=== PATIENT | female | born 1995 | race Caucasian/White ===

== ENCOUNTER → 2022-03-01 | Outpatient (CLI) | payer OTHER, SELFPAY ==
[2022-03-01 17:39] LABS: Absolute Lymphocyte Count 1.77 X10^3/uL (0.83-4.51); Absolute Neutrophil Count 2.3 X10^3/uL (2.0-7.7); Basophil# 0.04 X10^3/uL; Basophil% 0.8 % (0-1); Eosinophil# 0.08 X10^3/uL; Eosinophils% 1.6 % (0-5); Hematocrit 41.5 % (37-47); Hemoglobin 14.2 g/dL (12.0-15.0); Lymphocyte # 1.77 X10^3/ul (0.83-4.51); Lymphocyte % 34.6 % (19-41); Mean Corp Hgb Conc 34.2 g/dL (32-36); Mean Corpuscular Hgb 29.6 pg (27.0-32.0); Mean Corpuscular Volume 86.6 fL (81-99); Mean Platelet Vol. 9.5 fl (6.2-12.0); Monocyte# 0.92 X10^3/uL; NRBC Flagged by Analyzer 0 % (0-5); Neutrophil # 2.29 X10^3/uL (2.7-7.7); Neutrophil % 44.6 % (47-70); Platelet Count 344 K/mm3 (150-450); RBC Distribution Width CV 13.2 % (11.6-14.6); RBC Distribution Width SD 41.4 fl (35.1-43.9); Red Blood Count 4.79 M/mm3 (4.2-5.4); White Blood Count 5.1 K/mm3 (4.4-11.0)
[2022-03-01 18:25] LABS: ALB/GLOB Ratio 0.9 RATIO (0.9-2.4); AST(SGOT) 14 U/L (15-37); Alanine Aminotransfer ALT/SGPT 27 U/L (13-56); Albumin, Serum 3.8 g/dL (3.2-5.0); Alkaline Phosphatase 58 U/L (45-117); Anion Gap 10 (5-15); BUN 12 mg/dL (7-18); BUN/Creat Ratio 13.7 RATIO (10-20); Calcium,Total 8.9 mg/dL (8.5-10.1); Chloride 108 mmol/L (98-107); Creatinine, Serum 0.88 mg/dL (0.55-1.02); EST Glomerular Filtration Rate 84 mL/min (>60); Est Glom Filt Rate - Afr Amer 102 mL/min (>60); Globulin 4.2 g/dL (2.2-4.2); Glucose 87 mg/dL (74-106); Potassium 3.4 mmol/L (3.5-5.1); Sodium Level 139 mmol/L (136-145); T4 Free Direct 1.27 ng/dL (0.76-1.46); Thyroid Stim Hormone (TSH) 1.24 uIU/mL (0.358-3.74)
[2022-03-04 11:23] LABS: Anti-Thyroglobulin AB < 1.0 IU/mL (0.0-0.9); Thyroglobulin, Serum Qt. 22.8 ng/mL (1.5-38.5); Thyroid Peroxidase AB 14 IU/mL (0-34)
== END | disposition home or self-care (01) ==
LOC: MTLAB 16:44
PROVIDERS: PCP Family Medicine; Referring Provider Family Medicine; Visit Provider Family Medicine
DX: E04.1 Nontoxic single thyroid nodule (principal)
CPT/HCPCS: 36415; 80053; 84432; 84439; 84443; 85025; 86376; 86800

== ENCOUNTER → 2022-03-05 | Outpatient (CLI) | payer OTHER, SELFPAY ==
--- NOTE | 2022-03-05 11:31 | US_ITS ---
STUDY: THYROID ULTRASOUND REASON FOR EXAM: Female, 26 years old. Nodule noted on previous CT TECHNIQUE: Ultrasound evaluation of the thyroid was performed with real-time and static mendez-scale imaging. COMPARISON: None. FINDINGS: RIGHT LOBE: The right lobe of the thyroid gland measures 5.1 x 2.4 x 1.3 cm. There is a homogeneous echotexture. There is a hypoechoic 0.8 x 0.7 x 0.6 cm nodule in the lower pole. LEFT LOBE: The left lobe of the thyroid gland measures 5.2 x 1.6 x 1.0 cm. There is a homogeneous echotexture. There are no demonstrated solid, cystic or complex lesions. ISTHMUS: The isthmus measures 2.3 mm. The regional lymph nodes are normal. All measure less than 1 cm in short axis dimension. US/Thyroid IMPRESSION: Homogeneous thyroid gland with solid 0.8 cm lower pole nodule in the right lobe. This nodule is solid or almost completely solid, hypoechoic, [id number], smoothly marginated and contains no echogenic foci. This nodule is moderately suspicious but no FNA or follow-up is necessary given the small size of this nodule. Electronically Signed: Victorino Mackay MD at 14:40 EST ,
== END | disposition home or self-care (01) ==
PROVIDERS: PCP Family Medicine; Referring Provider Family Medicine; Visit Provider Family Medicine
DX: E04.1 Nontoxic single thyroid nodule (principal)
CPT/HCPCS: 76536

== ENCOUNTER → 2022-12-13 | Outpatient (CLI) | payer OTHER, SELFPAY ==
[2022-12-13 17:30] LABS: Absolute Lymphocyte Count 2.72 X10^3/uL (0.83-4.51); Absolute Neutrophil Count 5.7 X10^3/uL (2.0-7.7); Basophil# 0.06 X10^3/uL; Basophil% 0.6 % (0-1); Eosinophil# 0.16 X10^3/uL; Eosinophils% 1.7 % (0-5); Hematocrit 41.5 % (37-47); Hemoglobin 13.7 g/dL (12.0-15.0); Lymphocyte # 2.72 X10^3/ul (0.83-4.51); Mean Corpuscular Hgb 29.4 pg (27.0-32.0); Mean Corpuscular Volume 89.1 fL (81-99); Mean Platelet Vol. 9.2 fl (6.2-12.0); Monocyte% 7.5 % (0-10); NRBC Flagged by Analyzer 0 % (0-5); Neutrophil # 5.68 X10^3/uL (2.7-7.7); Neutrophil % 60.7 % (47-70); Platelet Count 408 K/mm3 (150-450); RBC Distribution Width CV 12.8 % (11.6-14.6); RBC Distribution Width SD 41.5 fl (35.1-43.9); Red Blood Count 4.66 M/mm3 (4.2-5.4); White Blood Count 9.4 K/mm3 (4.4-11.0)
[2022-12-13 18:05] LABS: Vitamin B12 458 pg/mL (211-911); Vitamin D,25 Hydroxy 20.6 ng/mL
[2022-12-13 18:09] LABS: AST(SGOT) 13 U/L (15-37); Alanine Aminotransfer ALT/SGPT 26 U/L (13-56); Alkaline Phosphatase 56 U/L (45-117); Anion Gap 6 (5-15); BUN 14 mg/dL (7-18); BUN/Creat Ratio 14.6 RATIO (10-20); Calcium,Total 9.2 mg/dL (8.5-10.1); Chloride 107 mmol/L (98-107); Creatinine, Serum 0.96 mg/dL (0.55-1.02); EST Glomerular Filtration Rate 75 mL/min (>60); Est Glom Filt Rate - Afr Amer 91 mL/min (>60); Globulin 4.2 g/dL (2.2-4.2); Glucose 87 mg/dL (74-106); Potassium 4.3 mmol/L (3.5-5.1); Protein, Total 8.2 g/dL (6.4-8.2); Sodium Level 138 mmol/L (136-145); T4 Free Direct 1.14 ng/dL (0.76-1.46); Thyroid Stim Hormone (TSH) 0.84 uIU/mL (0.358-3.74)
== END | disposition home or self-care (01) ==
LOC: MFPLAB 16:53
PROVIDERS: PCP Family Medicine; Visit Provider Family Medicine
DX: R53.83 Other fatigue (principal)
CPT/HCPCS: 36415; 80053; 82306; 82607; 84439; 84443; 85025

== ENCOUNTER 2022-12-26 08:00 | Outpatient (RCR) | payer OTHER, SELFPAY ==
--- NOTE | 2022-12-26 09:05 | BH.SGPN.GN ---
Behaviors/Verbalizations/Mental Status: [] Pt alert and oriented, neatly dressed and groomed. Eye contact good. Motor activity appropriate. Speech within normal limits. Affect flat, mood anxious. Thoughts linear, logical, no signs of hallucinations or delusions. Reviewed pt?s symptom tracker, no risk for suicidal ideation, plan, or intent 12/26/22 Client Response/Progress/Benefit: []Pt responded well to session, attentive and engaged. Pt's first day of IOP tx and pt shared the biggest stressor she wants to work on is how to not feel so overwhelmed. Pt shared work is her biggest trigger for stress and pt is currently on leave. Pt shared she has not been able to function because of her anxiety, but this weekend she had a moment of normalcy as pt went to the fair with friends and had a good time. Pt receptive to encouragement from peers and therapist. Pt will continue IOP tx to prevent decompensation, improve daily functioning, and reduce isolation. Narrative Note: []
--- NOTE | 2022-12-26 09:58 | BH.COMM ---
Communication Note Communication with Client Communication Note: Met with pt to complete initial paperwork. Pt reports no changes since intake assessment. Completed the CSSR-S screening and risk assessment with pt. No history of thoughts of or suicidal ideations, ever. Discussed case with Dr. Alanis and pt will be admitted to [facility] level of care with diagnosis of MDD F32.2
--- NOTE | 2022-12-26 10:15 | BH.SGPN.GN ---
Behaviors/Verbalizations/Mental Status: []Eye contact is good. Motor activity is appropriate. Appearance is casual. Speech is Appropriate, mostly quiet as it is pt first day. Mood is anxious and depressed. Affect is congruent. Thoughts are linear and logical. No evidence of psychosis. Client Response/Progress/Benefit: []Pt was an active participant in group discussion. Attentive during psychoeducation on SMART goals. Participated in experiential activity. Engaged during interactive discussion on the benefits of setting goals which group identified as; increase self-worth, increase confidence, can motivate us, can lead to personal growth, and can give one a sense of purpose. Participated during interactive discussion on possible obstacles to obtaining goals and pt self-identified barriers as procrastinating and self-doubt. Benefited from increased understanding of benefits of goals, obstacles to obtaining goals, and methods for setting appropriate goals (SMART goals). Will continue in IOP to prevent decompensation, stabilize mood, and improve current functioning. Narrative Note: []
--- NOTE | 2022-12-26 11:15 | BH.SGPN.GN ---
Behaviors/Verbalizations/Mental Status: []Pt alert and oriented, casually dressed, appropriately groomed. Eye contact good. Motor activity appropriate. Speech within normal limits, mostly quiet. Affect congruent, mood anxious and depressed. Thoughts linear, logical, no signs of hallucinations or delusions. Client Response/Progress/Benefit: []Pt was engaged during discussion and willing to complete the worksheet challenging them to develop a personal SMART goal. Pt chose the goal of going for a 30 minute walk 2x this week. Pt stated this will benefit them by being improving their mood and positivity, as well as lead to feeling more physically healthy. Pt identified barriers which included feeling too tired or unmotivated and bad weather. Identified for feeling too tired she can use reminding herself of the benefits as well as try and go in the afternoon rather than morning. Pt receptive to identifying solutions for these barriers and willing to begin working on this goal. Benefited from this group by developing a short-term SMART goal related to mental health. Will continue IOP to improve healthy coping skills, decrease anxiety, and prevent decompensation. Narrative Note: []
--- NOTE | 2022-12-28 09:05 | BH.SGPN.GN ---
Behaviors/Verbalizations/Mental Status: []Pt alert and oriented, casually dressed and groomed. Eye contact good. Motor activity appropriate. Speech within normal limits. Affect congruent, mood dysthymic and anxious. Thoughts linear, logical, no signs of hallucinations or delusions. Reviewed pt?s symptom tracker, no suicidal ideation reported, denies plan, or active intent as of 12/28/22. Client Response/Progress/Benefit: [] Pt responded well to session, open to processing with group and engaged. Pt reports feeling anxious this morning. Shared her current stressor is contributing to increased anxiety levels as she recently realized she had forgotten to call about completing paperwork for work in order for her to take time off for tx. Described waking up in the middle of the night with anxiety as a result. Did well to identify what is in her control today and expressed plans to reach out this afternoon. Went on to identify current mental health wins which included getting some housework done the previous date, as well as getting up early this morning and starting her day off on a more positive note. Shared taking time to actually eat breakfast before group. Pt appeared to benefit from supportive feedback of the group, as well as reflecting on mental health wins. Pt will continue IOP tx to promote mood stability, improve self-care and anxiety management, as well as continue to improve functioning. Narrative Note: []
--- NOTE | 2022-12-28 11:15 | BH.SGPN.GN ---
Behaviors/Verbalizations/Mental Status: []Pt alert and oriented, casually dressed and groomed. Eye contact good. Motor activity appropriate. Speech within normal limits. Affect congruent, mood depressed and anxious. Thoughts linear, logical, no signs of hallucinations or delusions. Client Response/Progress/Benefit: [] Pt was an active participant AEB providing input and was actively taking notes. Connected with the topic of pitfalls and listened to group discussion on internal and external barriers that prevent from choosing a healthier path to mental wellness. Group worked together to identify examples of personal internal pitfalls and pt identified theirs as avoidance, isolation, and lack of self-care. Pt benefited from group as Pt learned to better identify and normalize potential barriers to improving mental health symptoms. Pt did well during the activity, reporting feeling stressed, but practiced healthy coping skills. Pt will continue IOP tx to prevent decompensation, improve daily functioning, and gain healthy coping skills. Narrative Note: []
--- NOTE | 2022-12-28 13:10 | PCM.BH.PSYEV ---
Psychiatric Evaluation Initial Evaluation Initial Evaluation: History of Present Illness: [] The patient is a 27-year-old single female with a history of depression and anxiety who was referred to the [facility] behavioral health IOP by her psychiatrist, Dr. Armas, due to worsening symptoms of anxiety and depression. She currently lives with her grandmother across the street from her parents and brother. 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 Her job is always very stressful and she has been off work for several weeks since November 17, 2022 due to mental health issues. Her stress has decreased since being off work but she is still depressed and somewhat anxious. She states she began feeling anxious and depressed around December 2021 when she changed her department at work and then there was low staff. She started a different job position doing intakes but that caused her stress to worsen and then she began having nausea every morning due to anxiety. She went back to her old job in May 2022 but the caseload had increased a lot due to staff shortages so her anxiety continued to worsen. For primary support she has lots of friends. She feels that she is unable to cope with the current level of symptoms she is having although she has always been anxious. She endorses sadness, crying episodes, anhedonia, guilt, isolation, low motivation, worthlessness, hopelessness and decreased concentration.. She is getting about 6 hours of sleep at night but wants to sleep all the time and once a week sleeps for over 12 hours. She has some initial insomnia. She denies any history of self-harm. She is having trouble doing her activities of daily living and paying her bills. She admits to drinking 4 drinks a day 1 to 2 days a week although she gave reports of higher alcohol use to a few other interviewers. She decreased her alcohol use about 1 month ago and she states that at the peak of her alcohol use she was drinking 4 drinks per night daily for about a week and this scared her so she decreased her use down to the current levels. She is drinking energy drinks and coffee and pop mostly in the morning. She admits to passive thoughts of like she would like to escape or going to a small coma. She denies suicidal ideation, plan for suicide, homicidal ideation, hallucinations or delusions or symptoms of delio ever. She is a worrier by nature and has had anxiety her whole life. She is having panic attacks about once a week. She denies OCD, eating disorder, trauma, PTSD, seizure or head trauma. Current Psychiatric Medications: [] Cymbalta 60 mg p.o. daily (x2 months, dose increased 4 to 6 weeks ago); hydroxyzine 25 mg p.o. 3 times daily but she is only taking 2 p.o. at bedtime to help with her sleep. BuSpar not sure the dose 10 mg p.o. twice daily. No psych admits. 1 counseling session in high school only no other counseling. No suicide attempts ever. First took meds at 18 for only 1 to 2 months. She did she stopped them because they made her less motivated. She thinks she may have taken Celexa and 1 other med but it also made her not motivated so she stopped it. Past Psychiatric History: [] See above Substance Use History: [] Non-smoker. No vaping. First used alcohol at age 22. In the past that her maximum level she used 4 drinks per night every day for a week but states that now she has decreased to 4 drinks a day 1 to 2 days a week. No marijuana use. No rehab ever. No other drug use. Allergies: [] No known allergies Medications: [] Low vitamin D so was told to take vitamin D 5000 IUs/day. Medications otherwise negative except psych meds as dictated above. Past Medical History: [] No illnesses or diseases. Patient has a sleep study scheduled which was ordered by her primary care doctor because he feels she may have obstructive sleep apnea as she wakes up gasping when sleeping and snores some. Tonsillectomy but no other surgeries. Regular menstrual periods. The patient is a 0 para 0 female who identifies as a lesbian. Patient also had a ultrasound of her thyroid done and had blood work done and she is not sure what it showed but they said they wanted to follow it. She has a family history of some thyroid issues. Family Psychiatric History: [] Father and brother has anxiety and mother has depression. Bipolar disorder and aunts and uncles on both sides of the family. Alcohol use in paternal grandfather, paternal uncles and maternal great uncles. Paternal uncles also have heroin drug addictions. 1 distant cousin on her mother side completed suicide. Personal/Social History: [] The patient was born and raised in [facility] and describes her childhood as isolated and surrounded by a lot of anger. Patient says she got used to being alone and isolated. Her parents were but they used to argue about her brother but they were not abusive to each other. She denies any verbal, sexual or physical abuse as a child. She did well in school and got good grades but when her anxiety worsened in high school her grades dropped. She graduated high school and played sports in high school. 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 She is not or in a relationship and identifies as a lesbian. She lives with her grandma across the street for parents and brother and her aunt and uncle live down the street. She graduated high school and graduated from [employer] with a degree in psychology. She has never had a serious girlfriend. Legal History: [] No DUIs. No long-term. Has car pick up driver's license and is able to drive. Review of Systems: [] Sweating specially when she becomes anxious and has panic attacks. Nauseated due to her anxiety. Some knee pain from old softball injuries. Review of systems otherwise negative except as noted in the present illness. Vital Signs: [] Vital signs reviewed in the medical records and in the nurses notes and updated and the patient is deemed medically able to participate in the IOP program. Mental Status Examination: [] Patient is a 27-year-old female who is overweight and otherwise appears normal for stated age and is ambulatory with a normal gait. She is casually dressed and groomed with good hygiene and has no psychomotor agitation or retardation. Mood is depressed and anxious. Affect is constricted. Eye contact is good and speech is normal rate and rhythm and fluent with no pressure. Thought process is goal-directed and organized. Thought content: There is evidence of passive thoughts of and wanting to escape into a small coma. There is no evidence of thoughts of self-harm, suicidal ideation, homicidal ideation, hallucinations or delusions. Reality testing is intact. Intelligence is average. Judgment is intact. Insight: Limited but some present. Impulsivity moderate Diagnoses: [] 1. Generalized anxiety disorder 2. Major depressive disorder, recurrent severe without psychosis 3. Work issues Plan: [] The patient will start the IOP program at [facility] in behavioral health as the structure, support, education and group therapy will hopefully prevent worsening of the patient's symptoms. She felt safe during the interview and if it anytime she does not feel safe she will let us know or go to the emergency room. The risk, options, possible complications and side effects of the medications were explained to the patient and she understands accepts these. The patient agrees to not use any alcohol and remains sober from alcohol. The patient agrees to not use any energy drinks and to decrease caffeine use. She agrees to get TS H and T4 lab work done for her history of possible thyroid or enlarged thyroid. She agrees to get her sleep study to rule out obstructive sleep apnea. She agrees to continue her current medications and in addition agrees to add Wellbutrin XL 150 mg p.o. every morning and prescription is sent in for this. She will continue to follow-up with her patient providers and I will see the patient in follow-up in 2 weeks.
--- NOTE | 2022-12-28 13:26 | BH.DR.ITP ---
Initial Treatment Plan Patient Information Visit Information: ADMISSION DATE: EXPECTED LOS: 4-6 weeks Problems/Symptoms Problem #1:: Depression Symptom:: Sadness, hopelessness, worthlessness, anhedonia, low motivation, passive thoughts of , decreased concentration, guilt Problem #2:: Anxiety Symptom:: Worry, rumination, panic attack, avoidance
--- NOTE | 2022-12-28 13:34 | BH.MDN_ITS ---
Multi-Disciplinary Note Note 30-min Individual: Time Started:: 11:25 Date: 12/28/22 Purpose of session/treatment goals addressed:: To gather information on pt's current stressors, symptoms, triggers, and tx goals. Another goal was to build rapport and provide emotional support. Eye Contact:: Good Motor Activity:: Appropriate Appearance:: Casual Speech:: Appropriate Mood:: Anxious and Depressed Affect:: Flat Thoughts:: Linear, Logical and No evidence of hallucinations/delusions noted Staff Interventions:: thought challenging, rapport building, strengths perspective, treatment planning and goal setting Client Response:: Pt responded well to session, open to meeting with therapist. Pt reports the week has done well so far and group is less anxiety- producing than expected. Pt stated her session with Dr. Alanis went well and Wellbutrin was added. Pt is currently taking time off work to be at IOP and focus on her mental health. Pt stated work is one of the biggest stressors, but pt shared she wants to get to the root of the problem while in IOP. Pt reported she wants to focus on gaining more insight to her warning signs, triggers, and negative thinking patterns. Pt shared that her symptoms have become so severe that she is avoiding everything which is not like pt. Pt stated just getting out of the house two days for IOP has already helped a little. Pt lives with her grandmother and pt shared they are close. Pt is also close with several friends, her parents, and her brother. Pt is receptive to learning healthy coping skills while in IOP and pt shared she liked the idea of creating a schedule/routine for herself. Risks/Concerns:: Pt denies any suicidal ideations. Pt admits to thoughts of such as not caring if she falls asleep and not wakes up. No suicide attempts, ever. Progress Toward Goals/Plan:: Pt's first week of IOP tx. Pt reports group has been going better than expected as pt was anxious to be around people. Pt is currently off of work to focus on her mental health and plans to be off fully until pt completes IOP. Pt currently endorses a depressed mood, lack of motivation, difficulty concentrating, lack of self-care including personal hygiene, passive thoughts of , avoidance, increased sleep, and negative thinking patterns. Pt will continue IOP tx to prevent decompensation, improve daily functioning, and increase healthy coping skills. Time Stopped:: 11:55
--- NOTE | 2022-12-28 13:35 | BH.MTP ---
[facility] Treatment Plan Patient Information Program Physician:: Dr. Alanis Primary Therapist:: Tyra WALKER Psychiatric Diagnoses Psychiatric Diagnoses:: Generalized anxiety disorder F41.1; Major depressive disorder, recurrent severe without psychosis Diagnosis Code(s):: F 41.1 Estimated LOS Estimated LOS (in weeks):: 6 Problem/Goal #1 Problem/Goal #1 Stated Goal:: Pt will increase mood stability by reducing hopelessness, worthlessness, and negative thinking patterns caused by MDD. Description of Barriers: Pt has a high-stress profession that could continue to impact pt's mental health even after IOP tx. Pt recently began drinking more frequently to cope with her mental health, but this concerned pt so she decreased use. Pt reports avoidance, negative thinking patterns, and lack of energy. Functional Impact: Pt is a 27-year-old female with a history of MDD and CHADWICK. Pt was referred to IOP tx by Dr. Armas due to worsening depression and anxiety resulting in pt taking FMLA from work. Pt reports her job is a big trigger for her worsening symptoms. Pt currently endorses a depressed mood, crying spells, hopelessness, worthlessness, feeling like a burden, insomnia, isolation, lack of energy, and lack of concentration. Pt also reports having anxiety that has been a problem forever but pt has been having weekly panic attacks. Pt also reports feelings of dread and avoidance because of anxiety. Pt's symptoms are impacting her personal hygiene, work functioning, and social functioning. Goal Relevant Strengths/Supports: Pt is motivated, connected with outpatient psychiatry, and has a lot of healthy supports. Objectives Objective #1: Stated Objective: Pt will learn and utilize 2-3 healthy coping strategies to better manage depressive symptoms and reduce suicidal ideations as shown by a decrease of DMS-5 symptoms for depression. Interventions: Through group and individual sessions, therapist will help pt identify triggers and warning signs of depression including emotional, physical, and behavioral changes. Therapist will teach pt various coping skills to manage symptoms and give pt tangible resources to use to regulate emotions. Therapist will use cognitive restructuring techniques and help pt gain awareness of negative thoughts that reinforce guilt and depression. Therapist will provide psychoeducation on maintenance cycles and help pt learn ways to break unhealthy maintenance cycles. Therapist will help pt incorporate behavioral activation and assist pt in setting SMART goals. Discharge Criteria: Pt will have met this goal when can report learning and using at least 2 coping skills to manage depressive symptoms and reduce isolation. Additionally, pt will have met this goal when pt's DSM-5 scores for depression decrease Target Date: 02/06/23 Review Date: 01/16/23 Status: open Objective #2: Stated Objective: Pt will identify at least 2-3 negative self-talk messages used to reinforce negative core beliefs, worthlessness, and isolation and replace thoughts with balanced, realistic messages. Interventions: Therapist will help pt identify distorted, negative beliefs about self and replace with more realistic, affirmative messages. Therapist will use CBT and DBT to help pt increase insight to the connection between thoughts, emotions, and behaviors. Therapist will encourage pt to practice thought challenging. Discharge Criteria: Pt will have achieved this goal when can verbalize at least 2 cognitive distortions and effectively replace those thoughts with affirmative messages. Target Date: 02/06/23 Review Date: 01/16/23 Status: open Problem/Goal #2 Problem/Goal #2 Stated Goal:: Will reduce intensity of anxiety and avoidance through increasing emotional regulation and distress tolerance skills Description of Barriers: Pt has a high-stress profession that could continue to impact pt's mental health even after IOP tx. Pt recently began drinking more frequently to cope with her mental health, but this concerned pt so she decreased use. Pt reports avoidance, negative thinking patterns, and lack of energy. Functional Impact: Pt is a 27-year-old female with a history of MDD and CHADWICK. Pt was referred to IOP tx by Dr. Armas due to worsening depression and anxiety resulting in pt taking FMLA from work. Pt reports her job is a big trigger for her worsening symptoms. Pt currently endorses a depressed mood, crying spells, hopelessness, worthlessness, feeling like a burden, insomnia, isolation, lack of energy, and lack of concentration. Pt also reports having anxiety that has been a problem forever but pt has been having weekly panic attacks. Pt also reports feelings of dread and avoidance because of anxiety. Pt's symptoms are impacting her personal hygiene, work functioning, and social functioning. Goal Relevant Strengths/Supports: Pt is motivated, connected with outpatient psychiatry, and has a lot of healthy supports. Objectives Objective #1: Stated Objective: Pt will identify 2-3 anxiety triggers and 2 coping skills to use when feeling anxious to manage anxiety as shown by reducing DSM-5 scores for anxiety Interventions: Therapist will provide education on anxiety, avoidance behaviors, and maintenance cycles. Therapist will help pt explore personal symptoms and warning signs of anxiety. Therapist will teach pt coping skills to improve emotional regulation, mindfulness, and distress tolerance to help pt cope with anxiety in the moment. Discharge Criteria: Pt will have accomplished this goal when she can identify at least 2 triggers and report using 2 coping skills to manage anxiety. Additionally, pt will have accomplished this goal AEB reduction of DSM-5 scores for anxiety. Target Date: 02/06/23 Review Date: 01/16/23 Status: open Objective #2: Stated Objective: Pt will increase ability to manage stressors and anxiety by gaining 2-3 distress tolerance skills. Interventions: Through group and individual therapy, pt will learn various coping skills to help manage stress and anxiety. Therapist will utilize DBT distress tolerance skills to increase awareness and give pt tools to more effectively manage anxiety. Therapist will provide psychoeducation on emotional regulation and help pt identify unhealthy coping skills she wants to change. Discharge Criteria: Pt will have accomplished this goal when can report improved ability to manage stressors and identify at least 2 distress tolerance skills. Target Date: 02/06/23 Review Date: 01/16/23 Status: open
--- NOTE | 2022-12-28 13:35 | BH.PSA ---
Source of Information Presenting Problems/Circumstances Problems, Referral Source, Mental Status, Client: Pt is a 27-year-old female with a history of MDD and CHADWICK. Pt was referred to [facility] tx by Dr. Armas due to worsening depression and anxiety resulting in pt taking FMLA from work. Pt reports her job is a big trigger for her worsening symptoms. Pt currently endorses a depressed mood, crying spells, hopelessness, worthlessness, feeling like a burden, insomnia, isolation, lack of energy, and lack of concentration. Pt also reports having anxiety that has been a problem forever but pt has been having weekly panic attacks. Pt also reports feelings of dread and avoidance because of anxiety. Pt's symptoms are impacting her personal hygiene, work functioning, and social functioning. Psychiatric Presentation Psych Issues & Need for Admission Psychiatric Issues:: Generalized anxiety disorder F41.1; Major depressive disorder, recurrent severe without psychosis Past Psychiatric History MH Treatment Hx Treatment History: No psych admits. Pt reports one counseling session in high school and no other counseling. No suicide attempts ever. First took meds at 18 for only 1 to 2 months. She stopped them because they made her less motivated. She thinks she may have taken Celexa and one other med but it also made her not motivated so she stopped it. First hospitalization:: n/a Most recent hospitalization:: n/a Medication Trials:: No ECT Therapy:: No Age of first mental health symptoms: around age 18, but pt reports I've probably had anxiety my entire life. Describe (age, circumstance, etc) any past hospitalizations: No hospitalizations Current providers for mental health treatment (counselor, psychiatrist, renal case manager, etc.): Pt does not have an outpatient therapist. Pt sees Dr. Armas for medication management. Development & Family of Origin Childhood Significant Childhood Events: Pt reports that she did not have abuse towards pt as a child, but pt described her childhood as isolated. Pt shared there was a lot of arguing. Family Who currently lives in your home?: Pt currently lives with her grandmother. Describe family composition:: Pt is the oldest of two children and she is close with her brother. Pt's parents are and pt has a good relationship with them for the most part. Pt and her mother have some issues that pt believes comes from childhood. Pt is close with her grandmother that she lives with. Pt is not and not currently in a serious relationship. Family History Family History Mother Arthritis Family Hx of Psychiatric or AOD Problems: Father and brother have anxiety and mother has depression. Pt reports there is history of Bipolar Disorder on both sides of the family. Alcohol use in paternal grandfather, paternal uncles, and maternal great uncles. Paternal uncles also have heroin drug addictions. Pt has one distant cousin on her mother side who by suicide. Ethnicity Culture Do you identify yourself with any particular cultural, ethnic background, or community?: No Sexuality Sexual Orientation: Homosexual Spirituality Yazidi Do you currently identify with any organized hindu?: None Mental Status Memory Recent Memory: Good Remote Memory: Good Concentration Concentration: Good Eye Contact Eye Contact: Good Speech Speech: Articulate Thought Process Thought Process: Logical Insight: Good Judgment: Good Behavior: Calm Orientation Orientation: Time, Person, Place and Situation Appearance Appearance: Appropriate Mood Mood: Anxious and Depressed Affect Affect: Constricted Suicide Assessment Suicidal Ideation Have you ever felt like hurting yourself?: No Please explain:: Pt denies suicidal ideations, but does endorse passive thoughts of . Were you using ETOH/drugs at the time?: No Physician Notification Violent Behavior/Abuse History Homicidal Ideation Do you have any homicidal thoughts? If so, explain:: No Abuse Have you ever been abused?: No Life Events Are there any other significant life events?: Hardships (Difficulty functioning at work, home, and socially.) Safety Do you ever feel threatened in your home? If yes, describe:: No Adult Social History Age 20 to Present Describe your current support system:: Pt has many friends that are supportive of her mental health. Pt is close with her grandmother and family. Pt also has supportive co-workers. Substance Use Substance Substance Use Type: Alcohol and Caffeine Specific Drugs What specific drugs have you used?: Non-smoker. No vaping. First used alcohol at age 22. In the past her maximum level was 4 drinks per night every day for a week but states that now she has decreased to 4 drinks a day 1 to 2 days a week. No marijuana use. No rehab ever. No other drug use. Leisure/Social Activities Interests What do you enjoy or might be interested in learning about?: Pt enjoys spending time with friends, crafting, and reading. Education & Occupational Histo Education What is your level of education?: Bachelor Degree (in psychology from [employer]) Do you have any learning disabilities?: No Occupation List any current or past employment:: Pt works for [employer] and has for a few years. This was pt's first job after college. Service Service Have you ever been in the ?: No Legal History Records Have you had any past legal charges?: No Do you have any current legal charges?: No Court Orders Have you had any past court orders for psychiatric treatment?: No Do you have a present court order for psychiatric treatment?: No Problem Checklist Current Problem Areas Problem List: Nutritional/Eating pattern changes, Depressed mood/sad, Anxiety, Inattention, Substance use (Pt reported increased drinking to cope with her depression and anxiety, but pt has now decreased her use.), Sleep problems, Pertinent health issues (Patient has a sleep study scheduled which was ordered by her primary care doctor because he feels she may have obstructive sleep apnea as she wakes up gasping when sleeping and snores some) and Additional psychosocial stressors (Difficulty functioning at work which led to FMLA. ) Discharge Planning Needs Anticipated Follow-Up Mental Health Center (Name/Phone Number):: Dr. Armas at [place] [facility] Therapist/Psychiatrist:: Dr. Armas Patient Information Coordinator's Assessment Client's Needs What are the client's strengths?: Pt is motivated, connected with outpatient psychiatry, and has a lot of healthy supports. Diagnoses Diagnoses Diagnosis #1:: CHADWICK Diagnosis #2:: Major Depressive Disorder, recurrent, severe, without psychosis. Interpretive Summary Interpretive Summary Interpretive Summary: Pt is a 27-year-old single female with a history of depression and anxiety who was referred to [facility] by her psychiatrist, Dr. Armas, due to worsening symptoms of anxiety and depression. Pt currently lives with her grandmother across the street from her parents and brother. 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 Her job is always very stressful and Pt has been off work for several weeks since November 17, 2022 due to mental health issues. Her stress has decreased since being off work but Pt is still depressed and somewhat anxious. Pt states Pt began feeling anxious and depressed around December 2021 when Pt changed her department at work and then there was low staff. Pt started a different job position doing intakes but that caused her stress to worsen and then Pt began having nausea every morning due to anxiety. Pt went back to her old job in May 2022 but the caseload had increased a lot due to staff shortages so her anxiety continued to worsen. For primary support Pt has lots of friends. Pt feels that Pt is unable to cope with the current level of symptoms Pt is having although Pt has always been anxious. Pt endorses sadness, crying episodes, anhedonia, guilt, isolation, low motivation, worthlessness, hopelessness and decreased concentration. Pt is getting about 6 hours of sleep at night but wants to sleep all the time and once a week sleeps for over 12 hours. Pt reports she has no motivation and has not been able to be productive at home or at work. Pt has some initial insomnia. Pt denies any history of self-harm. Pt is having trouble doing her activities of daily living and paying her bills. Pt admits to drinking 4 drinks a day 1 to 2 days a week although Pt gave reports of higher alcohol use to a few other interviewers. Pt decreased her alcohol use about 1 month ago as pt became anxious that she was developing a problem due to her family history. Pt states that at the peak of her alcohol use Pt was drinking 4 drinks per night daily for about a week and this scared her so Pt decreased her use down to the current levels. Pt is drinking energy drinks and coffee and pop mostly in the morning. Pt admits to passive thoughts of like Pt would like to escape or going to a small coma. Pt denies suicidal ideation, plan for suicide, homicidal ideation, hallucinations or delusions or symptoms of delio ever. Pt is a worrier by nature and has had anxiety her whole life. Pt is having panic attacks about once a week. Pt denies OCD, eating disorder, trauma, PTSD, seizure or head trauma. Pt denies any abuse during childhood. Strong family history of alcoholism and substance use. Pt also has family history of anxiety, depression, and bipolar disorder. Treatment Plan Recommendations Recommendations Guidelines Recommendations:: Pt will start IOP as the structure, support, education and group therapy will hopefully prevent worsening of pt?s symptoms. She felt safe during the interview and if it anytime she does not feel safe she will let us know or go to the emergency room. The risk, options, possible complications and side effects of the medications were explained to pt by Dr. Alanis and pt understands and accepts these. Pt agrees to not use any alcohol and remains sober from alcohol. Pt agrees to not use any energy drinks and to decrease caffeine use. Pt agrees to follow up with medical appointments for sleep apnea and thyroid. Pt will need outpatient therapy after IOP tx ends.
--- NOTE | 2022-12-30 09:01 | BH.SGPN.GN ---
Behaviors/Verbalizations/Mental Status: []Pt alert and oriented, casually dressed and groomed. Eye contact fair. Motor activity appropriate. Speech within normal limits. Affect constricted, mood depressed and anxious. Thoughts linear, logical, no signs of hallucinations or delusions. Reviewed pt?s symptom tracker, no suicidal ideation reported, denies plan, or active intent. Client Response/Progress/Benefit: [] Pt responded well to session, open to processing with group and engaged. On symptom tracker pt reports a 4/5, with 5 being severe, for depression and a 3/5 for anxiety. Patient reported her stressor is feeling emotionally drained and when she has several chores she needs to get done but feeling exhausted. Patient stated mental positive as using opposite action yesterday to push herself to get out of her house. Patient stated she ended up enjoying herself because she went to the bookstore and [place] some jazz music. Patient identified she started to realize that when she utilizes opposite action engages in activities she ends up enjoying it and becoming more motivated. Patient stated emotion for today's anxious. pt appeared to benefit from supportive feedback of the group, as well as reflecting on mental health wins. Pt will continue IOP tx to improve daily functioning, increase healthy coping skills, and prevent decompensation.
--- NOTE | 2022-12-30 10:10 | BH.SGPN.GN ---
Behaviors/Verbalizations/Mental Status: [] Eye contact is good. Motor activity is appropriate. Appearance is casual. Speech is Appropriate. Mood is anxious. Affect is congruent. Thoughts are linear and logical. No evidence of psychosis. Client Response/Progress/Benefit: [] Pt was an active participant in group discussions. Attentive during psychoeducation AEB by note taking. Pt worked along with her peers in small groups and worked to define guilt, inappropriate guilt, and appropriate guilt. Interactive discussion on examples of both inappropriate and appropriate guilt. Pt identified a personal example of inappropriate guilt which was feeling guilty for taking time off workand how this impacted her mental health. Benefited from increased awareness of guilt and the differences between appropriate and inappropriate guilt. Will continue in IOP to prevent decompensation, improve functioning to return to work, and increase healthy coping skills. Narrative Note: []
--- NOTE | 2022-12-30 11:15 | BH.SGPN.GN ---
Behaviors/Verbalizations/Mental Status: []Pt alert and oriented, neatly dressed and groomed. Eye contact good. Motor activity appropriate. Speech within normal limits. Affect congruent, mood depressed. Thoughts linear, logical, no signs of hallucinations or delusions. Client Response/Progress/Benefit: []Pt engaged participant AEB listening attentively to others and providing input throughout group. During challenge activity pt worked cooperatively with small group. Pt made connection that it takes patience, willingness to be uncomfortable, and problem solving to work through appropriate and inappropriate guilt. Pt worked with their small group to identify strategies to manage inappropriate guilt. Pt stated pt often feels inappropriate guilt when pt takes time for herself and right now that she is off work for her mental health. Pt wants to work on this by asking herself if the guilt is justified or unjustified. Pt seemed to benefit from learning about strategies to manage appropriate and inappropriate guilt. Pt to continue IOP to reduce isolation and avoidance, improve self-care, and reduce negative thinking patterns. Narrative Note: []
--- NOTE | 2023-01-03 09:05 | BH.SGPN.GN ---
Behaviors/Verbalizations/Mental Status: [] Eye contact is good. Motor activity is appropriate. Appearance is casual. Speech is Appropriate. Mood is depressed. Affect is congruent. Thoughts are linear and logical. No evidence of psychosis. Reviewed daily check in sheet and no reports of suicidal ideations or intent. Client Response/Progress/Benefit: [] Pt participated at times during the group discussion. Attentive. Daily symptom tracker notes 06/19 for depression and anxiety. Emotion for today is hopeful. Shared with the group recent struggles which had been exacerbated by poor sleep, headaches, and nausea. Despite these physical issues she has been consistent in her attempts to complete tasks and remained engaged with others. She reports sticking to routine and setting up social events. Goals, behavior activation, and opposite action have benefited her significantly this past week. Overall progress noted as she continues to utilize coping skills despite physical distress. Benefited from group support, encouragement, and feedback. Will continue in IOP to prevent decompensation, stabilize mood, increase healthy coping, and improve functioning to return to work. Narrative Note: []
--- NOTE | 2023-01-03 10:15 | BH.SGPN.GN ---
Behaviors/Verbalizations/Mental Status: []Pt alert and oriented, neatly dressed and groomed. Eye contact good. Motor activity appropriate. Speech within normal limits. Affect constricted, mood content. Thoughts linear, logical, no signs of hallucinations or delusions. Client Response/Progress/Benefit: [] Pt engaged in session AEB listening attentively to others and providing insight to group discussion. Pt engaged in activity, able to connect how it can be uncomfortable and difficult to accept when things are out of one?s own control. Pt worked with group to identify what things in life can be hard to accept. Group identified things hard to accept as: of a loved one, body image, loss of relationship, mental health diagnosis, other?s behaviors, and past decisions. Pt worked on identifying what personal things are hard to accept such as ?that other people have their own perceptions of you.? Pt seemed to benefit from increased awareness of importance of acceptance. Pt to continue IOP tx to prevent decompensation, reduce isolation and avoidance, and improve daily functioning. ? Narrative Note: []
--- NOTE | 2023-01-03 11:15 | BH.SGPN.GN ---
Behaviors/Verbalizations/Mental Status: []Pt alert and oriented, casually dressed and groomed. Eye contact fair to good. Motor activity appropriate. Speech within normal limits. Affect congruent, mood anxious and depressed. Thoughts linear, logical, no signs of hallucinations or delusions. Client Response/Progress/Benefit: []Pt responded well to session AEB taking notes and contributing to discussion throughout. Pt engaged as group continued discussion on acceptance and the mental health benefits of practicing acceptance. Pt and peers identified what makes acceptance challenging and pt completed a self-reflection exercise on what is hard to accept in pt's life. Pt identified struggling to accept needing help?. Group identified strategies to increase acceptance and pt shared wanting to focus on positive self-talk and starting with small acceptance goals. Pt appeared to benefit from gaining insight and learning strategies to increase acceptance. Pt will continue IOP tx to promote mood stability, continue to combat distortions, and prevent decompensation. Narrative Note: []
--- NOTE | 2023-01-04 09:05 | BH.SGPN.GN ---
Behaviors/Verbalizations/Mental Status: [] Pt alert and oriented, neatly dressed and groomed. Eye contact good. Motor activity appropriate. Speech within normal limits. Affect congruent, mood euthymic. Thoughts linear, logical, no signs of hallucinations or delusions. Reviewed pt?s symptom tracker, no risk for suicidal ideation, plan, or intent 01/04/23 Client Response/Progress/Benefit: []Pt responded well to session, attentive and engaged. Pt reports feeling hopeful this morning and shared she has many little wins. Pt shared she accomplished a lot of things she had been putting off due to anxiety and it felt good. Pt shared she had anxiety, short-term, but it was worth it. Pt also has been reaching out to friends more often and normally when she is depressed, pt isolates and withdraws from support. Pt stated she notices that her mood is still depressed and anxiety, but it is improving by using healthier skills. Pt's stressor today is dealing with her family, who pt reports is mostly healthy, but sometimes impacts my mood. Pt appeared to benefit from reflecting on application of skills. Pt will continue IOP tx to reduce negative self-talk, improve daily functioning, and increase motivation. Narrative Note: []
--- NOTE | 2023-01-04 10:10 | BH.SGPN.GN ---
Behaviors/Verbalizations/Mental Status: []Pt alert and oriented, appropriate grooming/appearance. Eye contact good. Motor activity appropriate. Speech within normal limits. Affect congruent, mood euthymic and anxious. Thoughts linear, logical, no signs of hallucinations or delusions. Client Response/Progress/Benefit: []Pt was an active participant in group discussions. Attentive during psychoeducation. Contributed during interactive discussions in which peers attempted to define crisis. Pt identified examples of potential crisis. Group also worked together to identify unhealthy responses to crisis which included; isolation, self-harm, substance abuse, avoidance, and distraction. Pt identified personal warning signs as negative perspective, isolation, and overuse of distraction. Benefited from increased understanding of crisis and awareness of personal responses to crisis. Pt will continue IOP tx to prevent decompensation and continue to promote healthy skill application and communication with supports, as well as use of thought challenging skills. Narrative Note: []
--- NOTE | 2023-01-04 11:10 | BH.SGPN.GN ---
Behaviors/Verbalizations/Mental Status: [] Eye contact is fair. Motor activity is appropriate. Appearance is casual. Speech is Appropriate. Mood is anxious. Affect is constricted. Thoughts are linear and logical. No evidence of psychosis. Client Response/Progress/Benefit: [] Pt was an active participant in group discussions. Attentive during psychoeducation. In small group pt along with peers developed an active plan for their crisis warning signs. Pt identified three crisis warning signs as well as an action plan for each. One crisis warning sign is negative perspective with an actions plan that involved: opposite action, journaling, meditation, and reminders. Other warning sign was isolation with an action plan that involved: reaching out for support, opposite action, getting out of the house, and engage in a hobby. Benefited from increased awareness of crisis warning signs and by developing crisis intervention strategies. Will continue in IOP to increase healthy coping, challenge distorted thoughts, and prevent decompensation.
--- NOTE | 2023-01-04 15:58 | BH.MDN ---
Multi-Disciplinary Note Note 30-min Individual: Time Started:: 12:10 Date: 01/04/23 Purpose of session/treatment goals addressed:: To work on goal #1 of pt's tx plan. Eye Contact:: Good Motor Activity:: Appropriate Appearance:: Neat (well groomed and dressed up) Speech:: Appropriate Mood:: Euthymic Affect:: Full Thoughts:: Linear, Logical and No evidence of hallucinations/delusions noted Staff Interventions:: psychoeducation on: (maintenance cycles), CBT techniques, rapport building, strengths perspective, goal setting and taught coping skills Client Response:: Pt responded well to session, open to meeting with therapist. Pt shared she is in a more positive mood today and pt has been using opposite action to accomplish more tasks. Pt feels less anxious because she did a lot of things she had been avoiding. Pt stated doing those things made her feel anxious, but she knows I'll just feel more anxious if I don't do them. Pt had crisis group today and pt shared it was helpful because pt learned about her triggers and personal warning signs. Pt shared some of the biggest ones she notices are avoidance, isolation, and seeking quick fixes. Pt stated she also struggles with finding hobbies to try, but if she is not good at them right away pt will stop doing them. Pt receptive to learning about how our warning signs, triggers, and response impact pt's maintenance cycles for mental health symptoms. Discussed examples for depressive maintenance cycles and pt connected with these. Pt also feels she has a perfectionist maintenance cycles which feeds into her anxiety and depression. Pt receptive to completing her personal maintenance cycle for homework. Risks/Concerns:: Pt denies any thoughts of or SI. Progress Toward Goals/Plan:: Pt is responding well to tx AEB pt's consistent attendance and engagement in sessions. Pt reports medication compliance and responding well to Wellbutrin. Pt's mood is improved this week and pt reports she is getting a lot more done. Pt still endorses depressive and anxiety symptoms including rumination, negative self-talk, isolation, avoidance, safety behaviors, and anhedonia. Pt is gaining more insight to her warning signs and triggers. Pt will continue IOP tx to promote mood stability, reduce negative thinking patterns and improve daily functioning. Time Stopped:: 12:35
--- NOTE | 2023-01-06 09:05 | BH.SGPN.GN ---
Behaviors/Verbalizations/Mental Status: [] Eye contact is good. Motor activity is appropriate. Appearance is casual. Speech is Appropriate. Mood is depressed. Affect is congruent. Thoughts are linear and logical. No evidence of psychosis. Reviewed daily check in sheet and no reports of suicidal ideations or intent Client Response/Progress/Benefit: [] Pt participated when prompted. Attentive. Daily symptom tracker notes 3/5 for depression and 2/5 for anxiety. Emotion for today is depleted. Feels very drained today describing moderate depression with physical symptoms. She continues to practice opposite action and self-care as she has found that behavior activation has been very beneficial to her mental health. Sticking to her routines and setting plans with support to prevent decompensation, isolation, and unhealthy coping. Progress noted as she is utilizing skills to manage depression and lack of motivation. Benefited from group support, encouragement, and feedback. Will continue in IOP to prevent decompensation, stabilize mood, and improve functioing to return to work. Narrative Note: []
--- NOTE | 2023-01-06 10:10 | BH.SGPN.GN ---
Behaviors/Verbalizations/Mental Status: []Eye contact is fair. Motor activity is appropriate. Appearance is casual. Speech is Appropriate. Mood is anxious and euthymic. Affect is congruent. Thoughts are linear and logical. No evidence of psychosis. Client Response/Progress/Benefit: []Pt participated during the group discussion. Attentive during psychoeducation and actively engaged during experiential activity. Participated during interactive discussion on aspects of fixed mindset. Group identified several aspects of fixed mindset which include: inflexible, belief that one cannot grow, absolute thinking, and all of one's skills, traits, and behaviors can't change. Group identified personal examples of fixed thinking in which pt shared personal fixed thoughts as: I'm unlovable, Things will never change, and why try. Benefited from increased understanding of personal fixed mindsets and how they can impact mental health. Will continue in IOP to increase healthy coping skills, challenge distortions, and prevent decompensation.
--- NOTE | 2023-01-06 11:15 | BH.SGPN.GN ---
Behaviors/Verbalizations/Mental Status: []Pt alert and oriented, casually dressed and groomed. Eye contact good. Motor activity appropriate. Speech within normal limits. Affect congruent, mood euthymic. Thoughts linear, logical, no signs of hallucinations or delusions. Client Response/Progress/Benefit: []Pt was an active participant during activity and discussion AEB providing some input, connecting with peers, as well as taking notes throughout. Pt did well to engage as group worked on identifying characteristics and benefits of adopting a growth mindset. Worked with fellow participants in reframing the example fixed thoughts into growth mindset thoughts. Pt worked on changing own fixed thought of ?I'm not good enough? to growth thought of ?I have good qualities that can be built upon.? Benefitted from discussing benefits of growth mindset and brainstorming strategies for prompting growth-mindset. Pt appeared to benefit from working in small groups to challenge own thoughts and help peers. Pt will continue IOP tx to prevent decompensation, increase self-confidence, and combat distorted thinking patterns. Narrative Note: []
--- NOTE | 2023-01-09 09:00 | BH.SGPN.GN ---
Behaviors/Verbalizations/Mental Status: [Patient was alert and oriented, casually dressed and groomed. Eye contact was good, motor activity appropriate, speech within normal limits. Affect congruent, mood depressed/down. Thoughts linear, logical, no signs of hallucinations or delusions. Reviewed patient?s symptom tracker all categories within normal limits.] Client Response/Progress/Benefit: [Patient was engaged in session and open to the discussion. Patient reports her mood to be distracted and withdrawn. Patient shares her first win was that she went to a birthday part that had a lot of people she is not close with which gave her anxiety but states it went well and had good conversations. Patient reports her second win as having sushi with a friend after the birthday republican although she was drained. Patient expressed that she was happy with herself for not canceling the plans because that would be normally something she?d do. Patients stressor was that last night she had negative self-talk and bad anxiety. This caused the patient to not sleep well and when she finally did, her dreams were bad and made her restless. Patient connected with other group members about their mental wins and stressors and offered advice to some members. Patient will continue with IOP treatment to promote mood stability, improve distress tolerance, and continue to improve functioning.] Narrative Note: []
--- NOTE | 2023-01-09 10:15 | BH.SGPN.GN ---
Behaviors/Verbalizations/Mental Status: []Pt alert and oriented, disheveled appearance. Eye contact good. Motor activity appropriate. Speech within normal limits. Affect congruent, mood depressed. Thoughts linear, logical, no signs of hallucinations or delusions. Client Response/Progress/Benefit: []Pt was an active participant in activity and taking notes during group discussion. Attentive during psychoeducation on coping skills, why people use unhealthy coping skills, and how to replace unhealthy coping skills. Group came up with list of negative coping skills including not asking for help, self-sabotage, alcohol, and sleeping. Group discussed the effects of how negative coping skills can impact mental health in a negative way. Benefited from increased understanding of unhealthy coping skills and the need for developing healthy internal and external coping skills. Pt will continue IOP tx to prevent decompensation, reduce negative thinking patterns, and improve use of healthy coping skills. Narrative Note: []
--- NOTE | 2023-01-09 11:10 | BH.SGPN.GN ---
Behaviors/Verbalizations/Mental Status: []Pt alert and oriented, casually dressed and groomed. Eye contact fair. Motor activity appropriate. Speech within normal limits. Affect constricted, mood dysthymic. Thoughts linear, logical, no signs of hallucinations or delusions Client Response/Progress/Benefit: []Pt responded well to session, taking notes and contributing. Group discussed the different categories of coping skills which included distraction, emotional release, grounding, self-love, and thought challenging.? Pt participated in creating a coping skills ?menu? from the five categories of coping skills. Pt's coping skill menu included: journaling, belly breathing, exercise, give self time to get ready, and find evidence against negative thoughts. Appeared to benefit from increasing repertoire of healthy coping skills. Will continue IOP tx to improve distress tolerance, increase healthy coping, and prevent decompensation.
--- NOTE | 2023-01-11 09:00 | BH.SGPN.GN ---
Behaviors/Verbalizations/Mental Status: [Patient was alert and oriented, casually dressed and groomed. Eye contact was good, motor activity normal, speech within normal limits. Affect congruent, mood worried. Thoughts linear, logical, no signs of hallucinations or delusions. Reviewed Patients symptom tracker and the patient reported being low/moderate in agitation/irritability/anger, moderate in depressed mood, and moderate/severe in anxiety/panic attacks. The patient does not report any symptoms of self-harm urges/behaviors, thoughts of suicide or risk of suicide.] Client Response/Progress/Benefit: [Patient was engaged and open to the discussion. Patient reported her mood to be ?Worried?. Patient described her first win is that she has started setting an alarm every day to take her medication in the mornings. Patient stated the alarm aids her maintaining a routine even on days she does not have to work. Her second win was that she got a new journal so that she can write in along with colorful pens and stickers. This journal has prompts inside it for every month. She stated it included a section for her daily wins and different challenge goals. Patient stated her stressor is knowing she will be returning to work and will leave IOP in the next few weeks. This is causing her anxiety but feels it could be good anxiety. Patient stated it might be good because she is anxious to go back. Patient was quite but used active listening skills when others shared. Patient will continue with IOP treatment to promote healthy thinking patterns, improve distress tolerance, and continue to improve functioning.] Narrative Note: []
--- NOTE | 2023-01-11 11:05 | BH.SGPN.GN ---
Behaviors/Verbalizations/Mental Status: []Pt alert and oriented, neatly dressed and groomed. Eye contact good. Motor activity appropriate. Speech within normal limits. Affect constricted, mood euthymic. Thoughts linear, logical, no signs of hallucinations or delusions. Client Response/Progress/Benefit: [] Pt was an active participant in group discussions and experiential activity. Attentive during psychoeducation. Pt participated during interactive discussion on strategies to overcome several obstacles to mental wellness including low self-worth, lack of motivation, and negative self-talk. Pt choose the barrier of low self-worth? to work on this week and identified strategies to incorporate including setting boundaries with others that reinforce negative self-worth. Benefited from increased awareness of obstacles to mental wellness and strategies to help overcome those obstacles. Will continue in IOP tx to promote use of healthy coping skills, improve mood stability, and reduce negative thinking patterns. Narrative Note: []
--- NOTE | 2023-01-11 11:35 | PCM.BH.PN_ITS ---
Progress Note Progress Note: And history of Present Illness/Interim History: The patient is a 27-year-old single female with a history of anxiety and depression who is seen in follow-up at the [facility] behavioral health IOP. I last saw the patient 2 weeks ago and at that time Wellbutrin XL was started and added to her medications. The patient states that she feels she is slowly improving and overall feels better. She is able to motivate her self to get out of the house more and get more done. She feels she is learning valuable skills in the IOP. Her mood remains depressed but is it is less depressed than it was 2 weeks ago. Her anxiety is also better and she is having panic attacks rarer than she was before. She still worries a lot however and is trying to learn to become aware of when she does this and lessen it. She has not used any alcohol in over 2 weeks. She denies passive thoughts of , suicidal ideation, plan for suicide, homicidal ideation, hallucinations or delusions. Sleep remains good. Current Psychiatric Medications: [] Wellbutrin XL 150 mg p.o. every morning (x2 weeks); Cymbalta 60 mg p.o. daily (increased 7 weeks ago); hydroxyzine 50 mg p.o. nightly; hydroxyzine 25 mg p.o. as needed for panic attack; BuSpar 20 mg p.o. twice daily; vitamin D daily. Mental Status Examination: [] The patient is a 27-year-old overweight female who appears normal for stated age and is casually dressed and groomed with good hygiene. She is ambulatory with a normal gait and has no psychomotor agitation or retardation. Mood is mildly depressed. Affect is full and normal. Eye contact is good and speech is normal rate and rhythm and fluent with no pressure. Thought process is goal-directed and organized. Thought content: There is no evidence of active or passive thoughts of suicidal ideation, thoughts of , plan for suicide, homicidal ideation, hallucinations or delusions. Reality testing is intact. Intelligence is average. Judgment is intact. Insight: Fair. Impulsivity low to moderate. Diagnoses: [] 1. Generalized anxiety disorder 2. Major depressive disorder, recurrent, severe without psychosis (improving) 3. Work issues Plan: [] The patient will continue the IOP at [facility] as the structure, support, education and group therapy will hopefully prevent worsening of the patient's symptoms. She felt safe during the interview and if it anytime she does not feel safe she will let us know or go to the emergency room. Reviewed the patient's DSA's HEENT for laboratory which she obtained and these were all normal. Patient will remain sober from alcohol use and continue to limit her caffeine intake. She will continue to follow-up with her outpatient providers and I will see the patient in follow-up in several weeks while she is in the IOP program.
--- NOTE | 2023-01-11 14:03 | BH.MDN ---
Multi-Disciplinary Note Note 45-min Individual: Time Started:: 10:20 Date: 01/11/23 Purpose of session/treatment goals addressed:: To work on goal #1 of pt's tx plan. Eye Contact:: Good Motor Activity:: Appropriate Appearance:: Neat Speech:: Appropriate Mood:: Euthymic Affect:: Congruent Thoughts:: Linear, Logical and No evidence of hallucinations/delusions noted Staff Interventions:: thought challenging, psychoeducation on: (core beliefs ), CBT techniques, strengths perspective, taught coping skills and other (administered the mistaken beliefs questionnaire and gave reflection questions for homework.) Client Response:: Pt responded well to session, open to meeting with therapist. Pt completed the homework from last session and reported it helped pt gain more insight to her maintenance cycles for depression. Pt has been implementing a daily routine which has helped pt be more active and motivated in the mornings. Today pt woke up early, made coffee, and cleaned up a little. Pt shared she is also trying to stick with a consistent sleep/wake schedule which will also help pt when she returns to work. Pt shared that even though she is doing more and being more active, pt still struggles with ruminations and negative thinking. Pt receptive to learning about distortions, intermediate beliefs, and core beliefs. Pt completed the mistaken belief questionnaire in session and based on pt's results, pt identified a few areas she struggles with the most. These include the belief that her worth is dependent on how perfect she is, the belief that her worth is dependent on achievements, and the belief that her worth is dependent on the love of others. Pt reports these core beliefs have maintained the cycle of depression and anxiety for years and cause pt to be highly critical of herself. Pt recognizes that she has double-standards with herself and is much more understanding to others. Pt willing to work on this and was given self-reflection questions for homework. Risks/Concerns:: Pt denies any suicidal ideations, plan, or intent. No thoughts of . No HI. Progress Toward Goals/Plan:: Pt reports making progress towards her tx goals AEB pt consistently following through with goals and reporting sticking to a routine at home. Pt feels her motivation is improving, but pt is noticing that her ruminations, negative self-talk, and distortions are keeping pt stuck in depression and anxiety. Pt will continue IOP tx to reduce negative thinking patterns, improve daily functioning, and increase self-compassion. Time Stopped:: 11:05
--- NOTE | 2023-01-13 09:00 | BH.SGPN.GN ---
Behaviors/Verbalizations/Mental Status: [Patient was alert and oriented, appropriately dressed and groomed. Eye contact was good, motor activity normal, speech within normal limits. Affect congruent, mood content. Thoughts linear, logical, no signs of hallucinations or delusions. Reviewed Patients symptom tracker and the patient reported all categories within normal limits.] Client Response/Progress/Benefit: [Patient was engaged and open to the discussion. Patient reported his mood to be ?content?. Patient identified her first win being that she cut out a lot of her caffeine intake and one hundred percent cut out alcohol use. Patient noted this has given her positive effects regarding her mood. Another win was she has the goal to declutter her room and has decided to take this in smaller steps. Patient stated the day prior she made it her goal to just do her closet which was successful. Patient said she will pick another day to declutter something else. A stressor identified was feeling ?intimidated? about going back to work on February 06. 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 Patient was interactive and respectful with other group members about their mental wins and stressors. Patient benefited from the discussion by listening to feedback and giving input on her peer?s stressors and mental health wins. Patient will continue with IOP treatment to help develop healthy skills, promote mood stability, and improve distress tolerance. ] Narrative Note: []
--- NOTE | 2023-01-13 09:00 | BH.SGPN.GN ---
Behaviors/Verbalizations/Mental Status: [] Eye contact is good. Motor activity is appropriate. Appearance is casual. Speech is Appropriate. Mood is euthymic. Affect is congruent. Thoughts are linear and logical. No evidence of psychosis. Reviewed daily check in sheet and no reports of suicidal ideations or intent. Client Response/Progress/Benefit: [] Pt participated during the group discussion. Attentive. Client identified mental health positive as cutting out significant amounts of caffeine and completing cutting out alcohol from her life. Client stated she has noticed significant improvement in her mood and energy by making these changes. Client stated additional win as completing goal of decluttering in one are of her house. Client stated her stressor is returning back to work on the . Client expressed worry about being able to maintain her progress when returns to a stressful job. Progress noted. Benefited from group support, encouragement, and feedback. Will continue in IOP to prevent decompensation, continue use of healthy coping skills, and build confidence.
--- NOTE | 2023-01-13 10:15 | BH.SGPN.GN ---
Behaviors/Verbalizations/Mental Status: [] Eye contact is good. Motor activity is appropriate. Appearance is casual. Speech is Appropriate. Mood is depressed. Affect is congruent. Thoughts are linear and logical. No evidence of psychosis. Client Response/Progress/Benefit: [] Pt did not participate in group discussions. Attentive during psychoeducation. Attentive during group discussion on types of support, benefits of support, and obstacles to utilizing support. Pt reports their primary supports are friends, family, reading, movies, IOP, and journaling. 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 Participated in experiential activity and was able to connect this activity to group topic. Benefited from increased awareness of the benefits and importance of maintaining a balanced support system. Will continue in IOP to prevent decompensation, increase healthy coping, and to improve functioning to return to work. Narrative Note: []
--- NOTE | 2023-01-13 11:17 | BH.SGPN.GN ---
Behaviors/Verbalizations/Mental Status: []Client alert and oriented, casually dressed and groomed. Eye contact good. Motor activity appropriate. Speech within normal limits. Affect congruent, mood euthymic and anxious. Thoughts linear, logical, no signs of hallucinations or delusions. Client Response/Progress/Benefit: [] Client was an active participant throughout AEB contributing to small group discussion, participating in the activity, and taking notes. Client provided input during discussion on the types of support our supports can provide. Able to identify the types of supports provided by current support system. Client reported gaining awareness that they could benefit from more social supports. Shared this will help to feel less anxious and isolated and feel connected. Client identified steps to achieve this as challenging herself to reach out and communicate more openly with supports as well as look into joining a group or club. Client seemed to benefit from identifying the types of support and areas client could benefit from improving. Pt recommended to continue IOP tx to improve mood management, promote healthy coping skill application, and increase engagement with supports. Narrative Note: []
== END 2023-01-14 23:59 ==
LOC: BHIOP 08:00
PROVIDERS: PCP Family Medicine; Referring Provider Psychiatry & Neurology Psychiatry; Visit Provider Psychiatry & Neurology Psychiatry
DX: F33.2 Major depressive disorder, recurrent severe without psychotic features (principal); F41.1 Generalized anxiety disorder
CPT/HCPCS: S9480; 90832; 90834; 90853

== ENCOUNTER → 2022-12-30 | Outpatient (CLI) | payer OTHER, SELFPAY ==
[2022-12-30 14:07] LABS: T4 Free Direct 0.93 ng/dL (0.76-1.46); Thyroid Stim Hormone (TSH) 0.96 uIU/mL (0.358-3.74)
== END | disposition home or self-care (01) ==
LOC: LAB 12:20
PROVIDERS: PCP Family Medicine; Referring Provider Psychiatry & Neurology Psychiatry; Visit Provider Psychiatry & Neurology Psychiatry
DX: E55.9 Vitamin D deficiency, unspecified (principal)
CPT/HCPCS: 36415; 84439; 84443

== ENCOUNTER 2023-01-16 09:17 | Outpatient (RCR) | payer OTHER, SELFPAY ==
--- NOTE | 2023-01-17 09:05 | BH.SGPN.GN ---
Behaviors/Verbalizations/Mental Status: [] Eye contact is good. Motor activity is appropriate. Appearance is casual. Speech is Appropriate. Mood is anxious. Affect is congruent. Thoughts are linear and logical. No evidence of psychosis. Reviewed daily check in sheet and no reports of suicidal ideations or intent. Client Response/Progress/Benefit: [] Pt participated at times during the group discussion. Attentive. Daily symptom tracker notes 3/5 for anxiety and 2/5 for depression. She continues to maintain her routine which has been a significant benefit to her overall mental health. Negative thoughts and overwhelming emotions continue to impact her consistently however notes that the intensity, frequency, and duration have decreased. Identified several stressors and discussion was had on internal and external skills to utilize. Progress noted as patient has been consistently utilizing skills and working on strategies to address rather than avoid stressors and obstacles. Emotion for today is anxious. Benefited from group support, encouragement, and feedback. Will continue in IOP to prevent decompensation, stabilize mood, and improve functioning to return to work. Narrative Note: []
--- NOTE | 2023-01-17 10:15 | BH.SGPN.GN ---
Behaviors/Verbalizations/Mental Status: [] Eye contact is good. Motor activity is appropriate. Appearance is casual. Speech is Appropriate. Mood is anxious. Affect is constricted. Thoughts are linear and logical. No evidence of psychosis or hallucinations. Client Response/Progress/Benefit: [] Pt was an engaged participant in group discussion and activity. Attentive during psychoeducation. Along with peers was able to identify barriers to taking action on her mental health which included: fear of failure, the unknown, change, one's environment, past negative experiences, being passive, and fear of vulnerability. Identified several symptoms and stressors that client feels are impacting progress. Client noted how fear of change has led to missed opportunities in her life. Benefited from increased self-awareness of obstacles. Will continue in IOP to challenge distortions, increase healthy coping skills, and prevent decompensation.
--- NOTE | 2023-01-17 11:20 | BH.SGPN.GN ---
Behaviors/Verbalizations/Mental Status: []Pt alert and oriented, casually dressed and groomed. Eye contact good. Motor activity appropriate. Speech within normal limits. Affect constricted, mood dysthymic. Thoughts linear, logical, no signs of hallucinations or delusions. Client Response/Progress/Benefit: [] Pt responded well to session, taking notes and participating in worksheet discussion. Pt connected with the zones of action/change and that making sustainable change comes from stepping out of one?s comfort zone into the learning zone. Pt set a goal to gain control over their urge to ?stay complacent? in life. Pt will do this by trying one new activity per week for a month and researching new jobs. ?Pt will ask a friend to be her accountability félix and pt will need to document in her journal to keep pt accountable. Appeared to benefit from identifying a small goal to benefit mental health. Will continue IOP tx to promote use of healthy coping skills, improve daily functioning, and increase self-compassion. ? Narrative Note: []
--- NOTE | 2023-01-18 09:00 | BH.SGPN.GN ---
Behaviors/Verbalizations/Mental Status: [] Pt alert and oriented, neatly dressed and groomed. Eye contact good. Motor activity appropriate. Speech within normal limits. Affect congruent, mood anxious and confident. Thoughts linear, logical, no signs of hallucinations or delusions. Reviewed pt?s symptom tracker, no risk for suicidal ideation, plan, or intent 01/18/23 Client Response/Progress/Benefit: []Pt responded well to session, attentive and engaged. Pt reports feeling anxious and hopeful this morning. Pt shared she has not been laying in bed as much, she is more productive, and she is accomplishing her goals throughout the day. Pt also notices she is giving herself more credit and she is less negative in general. Pt is anxious about returning to work for many reasons, but mostly because pt is not sure if she wants to return to her job. Pt's job is highly stressful and the turnover rate is high, which contributed to pt's worsening mental health symptoms prior to IOP. Pt understands that she is able to take her time and explore the pros and cons of all her options. Pt appeared to benefit from getting validation and giving herself credit. Pt will continue IOP tx to promote gains, improve self-compassion, and reinforce healthy coping skills. Narrative Note: []
--- NOTE | 2023-01-18 10:10 | BH.SGPN.GN ---
Behaviors/Verbalizations/Mental Status: [Patient was alert and oriented, casually dressed and groomed. Eye contact good, motor activity normal, speech within normal limits. Affect congruent, mood content. Thoughts linear, logical, no signs of hallucinations or delusions. ] Client Response/Progress/Benefit: [Patient was open and participated in group discussions. Attentive during psychoeducation on stages of change. Participated during the activity. Interactive group discussion on why change is difficult in which group verbalized that change involves the unknown, is scary, leads to uncertainly, makes one feel vulnerable, leads to fear of failure, and triggers the pressure of success. Patient was receptive and was able to identify emotions that could relate to barriers or benefits to change. Patient benefited from increased awareness of stages of changes and how emotions impact change. Patient will continue with IOP treatment to promote mood stability, improve distress tolerance, and continue to improve functioning.] Narrative Note: []
--- NOTE | 2023-01-18 11:10 | BH.SGPN.GN ---
Behaviors/Verbalizations/Mental Status: []Pt alert and oriented, casually dressed and groomed. Eye contact good. Motor activity appropriate. Speech within normal limits. Affect congruent, mood anxious and dysthymic. Thoughts linear, logical, no signs of hallucinations or delusions. Client Response/Progress/Benefit: []Pt responded well to session, attentive. Did well to engage in and process activity. Pt worked with group to relate the strategies used to overcome barriers in the activity to managing change in own life. Pt identified wanting to work on journaling daily for a month. She shared that this would continue to promote mood stability and increase her personal awareness of changes in mental health state. Pt identified that scheduling specific time to journal, purchasing a journal, and having a support help hold her accountable would aid in pt's ability to follow-through with making this change. Pt will continue IOP tx to further improve anxiety and stress management skills, promote continued communication with healthy supports, and improve self-care. Narrative Note: []
--- NOTE | 2023-01-18 15:42 | BH.MDN ---
Multi-Disciplinary Note Note 30-min Individual: Time Started:: 12:25 Date: 01/18/23 Purpose of session/treatment goals addressed:: To work on goal #1 of pt's tx plan. Eye Contact:: Good Motor Activity:: Appropriate Appearance:: Casual Speech:: Appropriate Mood:: Euthymic and Anxious Affect:: Congruent Thoughts:: Linear, Logical and No evidence of hallucinations/delusions noted Staff Interventions:: thought challenging, CBT techniques, mindfulness skills, strengths perspective, goal setting and other (gave pt homework to gather evidence for new core beliefs.) Client Response:: Pt responded well to session, open to meeting with therapist. Pt reports she has been functioning better at home and shared she is enjoying her morning routine. Pt had been isolating and not having motivation, which impacted her ability to get things done at home and her overall mood. Pt shared she is seeing benefits in her medication and her use of goal setting/opposite action. Pt stated she is glad she is feeling better and functioning better, but pt notices that she is still highly anxious about returning to work and her negative self-talk is still frequent. Pt shared she is feeling confused about what she wants to do with her job. Pt stated on one hand I'm like do I stay and use opposite action and push myself or do I explore other careers? Pt reported that for a long time she has struggled with putting other people's needs first which has reinforced fear of failure and kept pt from setting goals for herself. Pt shared she would like to move in the future, but her fear of disappointing others prevents pt from doing this. Pt stated her fear of disappointing others is a big reason she is anxious to return to work. Pt receptive to practicing shaw mind and challenging her anxious thoughts which helped pt see that her co-workers are a lot more understanding than pt's anxious brain thinks. Pt has gained more insight to her personal double standards and how this kind of thinking reinforces pt's belief that she has to be perfect. Pt wants to work on replacing old, unhelpful core beliefs and will work on gathering evidence this week for her new belief which is It's okay to say no and it's okay not to be on all the time. Pt given a worksheet to help pt gather evidence. Pt also encouraged to do some self-reflection on her options for the future as well as any personal barriers holding her back. Risks/Concerns:: No SI or thoughts of noted. Progress Toward Goals/Plan:: Pt continues to make progress towards her tx goals AEB pt's reduction of symptoms of 34% (per the DSM-5) since admission. Pt is consistent with attendance and use of coping skills. Pt still endorses a depressed mood with negative core beliefs, rumination, and fear of failure. Pt is anxious about returning to work due to the heavy workload and worries about how her co-workers will respond. Pt will continue IOP tx to increase pt's ability to manage stressors, increase self-confidence, and improve mood stability. Time Stopped:: 12:55
--- NOTE | 2023-01-18 15:42 | BH.TPR ---
Treatment Plan Review Demographics Date of Admission:: 12/26/22 Date of Treatment Plan Review:: 01/18/23 Admitting Diagnoses:: Generalized anxiety disorder F41.1; Major depressive disorder, recurrent severe without psychosis Current Diagnoses:: Generalized anxiety disorder F41.1; Major depressive disorder, recurrent severe without psychosis Patient Status Patient's Response to Treatment:: Pt has responded well to treatment AEB pt consistently attending IOP sessions and reduction of anxiety and depressive symptoms since admission. Pt contributes well during individual sessions and she is engaged during group sessions. Pt applies coping skills outside of IOP and reports overall mood is improved, pt is completing more of her ADLs, and pt is gaining more awareness of her distorted thought patterns. Status of Current Problems and Symptoms: Pt's symptoms are decreasing, but still prevalent. Pt continues to report negative thoughts of self, rumination, worry about returning to work, self-doubt, and indecisiveness. Pt's biggest stressors right now include her relationship with her mother, work, and deciding what she wants to do in the future. Pt reports increased ability to manage these stressors, but they are still impacting pt. Pt is working on combating negative thoughts, forming new core beliefs, setting healthy boundaries, and improving self-compassion. Progress Problem #1: Problem Name:: Mood instability, depression, worthlessness, and negative thinking patterns Status of Goals:: Objective 1- complete with ongoing work encouraged. Per the DSM-5 pt's scores for depression have decreased by 43% since admission. Pt reports more motivation, less isolation, and better functioning. Pt has been using opposite action and goal setting. Objective 2- in progress. Pt has gained awareness of the cognitive distortions and can challenge these. However, pt is struggling with practicing self-compassion and she is learning how to form new core beliefs. Team Recommendations:: Tx team recommends that pt continue working on these goals as pt can benefit from identifying and reframing distortions and beginning to form new, more balanced core beliefs. Pt is also encouraged to practice setting boundaries and verbalizing her needs. Problem #2: Problem Name:: Anxiety, avoidance, and ruminations. Status of Goals:: Objective 1- complete with ongoing work encouraged. Pt reports a 38% reduction in anxiety symptoms per the DSM-5. Pt continues to report anxiety about her future, setting boundaries, and work. Pt reports using calming skills, opposite action, and self-talk. Objective 2- complete with ongoing work encouraged. Pt reports she has been using healthier coping skills to manage her symptoms and has stopped drinking, which pt had been using before to manage stress. Pt also is gaining skill in expressing her boundaries and needs. Team Recommendations:: Pt is encouraged to continue working on this goal as pt can further reduce anxiety and increase emotional regulation skills. Pt encouraged to continue working on boundary setting, challenging anxious thought patterns, and maintaining self-care practices when pt returns to work.
--- NOTE | 2023-01-20 09:00 | BH.SGPN.GN ---
Behaviors/Verbalizations/Mental Status: [Patient was alert and oriented, appropriately dressed and groomed. Eye contact was good, motor activity normal, speech within normal limits. Affect congruent, mood content. Thoughts linear, logical, no signs of hallucinations or delusions. Reviewed Patients symptom tracker and the patient reports moderate in anxiety/panic attacks and low to moderate in depressed mood. The patient also reports no symptoms in agitation/irritability/anger, self-harm urges or thoughts/risk of suicide. ] Client Response/Progress/Benefit: [Patient was engaged and open to the discussion. Patient reported her mood to be ?relaxed?. Patients first win was she has been self-reflecting on her progress as she nears the end of the program. She explained that she thinks the program has helped a lot with her mental health as well as her medicine. A second win was also her stressors. Patient explained she is going on a weekend long fishing trip with her parents and is excited for this. However, the patient will be around her parents for a long period of time which is not always a ?good thing? if she is. Patient plans on bringing headphones to help her cope if things become overly emotional. Patient was interactive and respectful with other group members about their mental wins and stressors. Patient benefited from the discussion by listening to feedback and giving input on her peer?s stressors and mental health wins. Patient will continue with IOP treatment to help develop healthy skills, promote mood stability, and improve distress tolerance.] Narrative Note: []
--- NOTE | 2023-01-20 10:12 | BH.SGPN.GN ---
Behaviors/Verbalizations/Mental Status: []Pt alert and oriented, casually dressed and groomed. Eye contact good. Motor activity appropriate. Speech within normal limits. Affect congruent, mood anxious and euthymic. Thoughts linear, logical, no signs of hallucinations or delusions. Client Response/Progress/Benefit: [] Pt receptive to session AEB contributing to small group discussion, as well as listening attentively to others, and taking notes. Worked with group to brainstorm the positive and negative aspects of stress on physical and mental health. Group did well to identify the benefits of stress as well as the impact of distress on performance, relationships, and mental health. Pt identified their personal top stressors as: finances, their dog's health, mental health, and workplace changes. Pt seemed to benefit from increased awareness of current stressors and impact stress has on mental health. Recommended to continue IOP tx to increase healthy coping, promote continued mood stability, and prevent decompensation. Narrative Note: []
--- NOTE | 2023-01-20 11:15 | BH.SGPN.GN ---
Behaviors/Verbalizations/Mental Status: []Pt alert and oriented, casually dressed and groomed. Eye contact good. Motor activity appropriate. Speech within normal limits. Affect congruent, mood anxious and euthymic. Thoughts linear, logical, no signs of hallucinations or delusions. Client Response/Progress/Benefit: []Pt was an active participant in group discussions and experiential activity. Was able to identify the connection between the experimental activity and utilization of stress management skills. Pt reported feeling at times frustrated during the activity but did well to use breathing and thought challenging to manage her emotions. Attentive during psychoeducation on the 4 A's (Avoid, adapt, alter, accept) of coping with stress as well as strategies to identify stressors in which one has no control, little control, or a great deal of control over. Pt shared plans to utilize the skill of accept and adapt to address her stressor of returning to work and discussed plans to create a coping plan for when she returns. Benefited from increased awareness of stress management strategies. Will continue in IOP to prevent decompensation, promote continued mood stability, and increase self-confidence in returning to work. Narrative Note: []
--- NOTE | 2023-01-23 13:45 | BH.MDN ---
Multi-Disciplinary Note Note 45-min Individual: Time Started:: 11:30 Date: 01/23/23 Eye Contact:: Good Motor Activity:: Appropriate Appearance:: Casual Speech:: Appropriate Mood:: Anxious Affect:: Congruent Thoughts:: Linear, Logical and No evidence of hallucinations/delusions noted Staff Interventions:: thought challenging, CBT techniques, mindfulness skills, discharge planning, strengths perspective and other (Completed a return to work plan.) Client Response:: Pt responded well to session, open to meeting with therapist. Pt shared she is doing well overall in both mood stability and functioning. Pt stated she is anxious about returning to work and pt feels that this could be impacting her sleep quality recently. Pt receptive to completing a return to work plan which included triggers, warning signs, internal coping skills, external supports, and self-care strategies pt can use to prevent decompensation. Pt identified warning signs for worsening anxiety and depression at work which included: procrastination, avoiding calls and emails, and waking up at the last possible minute. Pt shared that she noticed before she had to take time off pt was not completing deadlines and she was going straight home from work to sleep. Pt wants to incorporate more self-care on a daily and weekly basis. Pt has been implementing a morning routine and pt has found this to be beneficial in increasing her productivity. Pt also wants to work on delegating tasks at work, bringing snacks/lunch, and scheduling things with friends during the weekday. 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 Pt plans to work on emails a few times a week for a few hours. Pt also plans to ask for more help with certain cases when pt can delegate tasks. Pt also identified what she could say to co-workers and challenged anxious thoughts about returning to work in session which appeared to be helpful. Pt wrote down different coping skills that can help pt such as mindfulness, thought challenging, boundary setting, and keeping up with a routine. Risks/Concerns:: No thoughts of or suicidal ideations reported. Progress Toward Goals/Plan:: Pt continues to make progress towards her tx goals AEB her self-report of improved functioning, increased motivation, reduced isolation, and overall more stable mood. Pt reports that she is anxious about returning to work due to the workload pt will be going back to, what pt will day to co-workers, and fear that pt leaving disappointing others. Pt did well with creating a plan to help pt return to work more successfully and pt also set goals for the week. Pt will continue IOP tx for another week as pt can benefit from establishing aftercare, reinforcing healthy coping skills, and continuing to combat negative thinking patterns. Time Stopped:: 12:15
--- NOTE | 2023-01-24 09:05 | BH.SGPN.GN ---
Behaviors/Verbalizations/Mental Status: [] Pt alert and oriented, casually dressed and groomed. Eye contact fair to good. Motor activity appropriate. Speech within normal limits. Affect congruent, mood euthymic and anxious. Thoughts linear, logical, no signs of hallucinations or delusions. Reviewed pt?s symptom tracker and pt denies any SI, plan, or intent as of this date, 01/24/23. Client Response/Progress/Benefit: [] Pt responded well to session, open to processing with group and engaged. Pt reports feeling anxious this morning. Shared her current stressor is that she has been waking up throughout the night and having nightmares which has increased her anxiety. Pt receptive of several suggestions provided by the group on managing nighttime anxiety. Shared plans to not have her cellphone next to her so she can't look at the time if she does wake up at night. Did well to identify current mental health wins which included successfully managing her emotions and not letting other's negative attitudes get to her while on a family fishing trip over the weekend. Additional win noted as plans to complete several personal responsibilities prior to returning to work in order to allow herself to focus primarily on maintaining mental health stability once back in the workplace. Pt appeared to benefit from supportive feedback of the group, as well as reflecting on mental health wins. Pt will continue IOP tx to promote mood stability, continue to encourage consistent boundaries and communication with supports as well as with her employer, as well as prevent decompensation. Narrative Note: []
--- NOTE | 2023-01-24 10:10 | BH.SGPN.GN ---
Behaviors/Verbalizations/Mental Status: []Pt alert and oriented, casually dressed and groomed. Eye contact good. Motor activity appropriate. Speech within normal limits. Affect constricted, mood euthymic. Thoughts linear, logical, no signs of hallucinations or delusions. Client Response/Progress/Benefit: []Pt was an active participate AEB providing contributions, listening attentively to others, and taking notes throughout. The group identified the impact of emotions on communication such as shutting down or not being productive when dysregulated. During group activity, Pt identified feeling ?confused? in the activity, but she was willing to problem-solve which helped pt and her partner. Pt benefited from session by gaining an increased understanding on the importance of managing emotions to improve daily functioning. Pt will continue IOP tx to promote use of healthy coping skills, improve work-related functioning, and combat distorted thinking patterns. Narrative Note: []
--- NOTE | 2023-01-24 11:10 | BH.SGPN.GN ---
Behaviors/Verbalizations/Mental Status: []Pt alert and oriented, casually dressed and groomed. Eye contact fair. Motor activity restless. Speech within normal limits. Affect constricted, mood euthymic. Thoughts linear, logical, no signs of hallucinations or delusions. Client Response/Progress/Benefit: [] Pt engaged in session AEB Pt listening attentively to peers and providing input. Attentive during psychoeducation on 4 zones of regulation. Pt able to identify feelings and behaviors for each zone. Pt identified coping skills one can use to support self in each zone. Identified one skill from each zone she can practice which included: opposite action by engaging in a hobby, working out, and make plans. Benefited from increased education on zones of regulation or stages of alertness for emotions and healthy coping skills to use for each zone. Will continue IOP tx to continue use of healthy coping skills, increase confidence, and prevent decompensation.
--- NOTE | 2023-01-25 09:00 | BH.SGPN.GN ---
Behaviors/Verbalizations/Mental Status: [ Patient was alert and oriented, casually dressed and groomed. Eye contact was good, motor activity normal, speech within normal limits. Affect congruent, mood content. Thoughts linear, logical, no signs of hallucinations or delusions. Reviewed Patients symptom tracker and the patient reports moderate/severe in anxiety/panic attacks, and low/moderate in depressed mood. Patient reported no symptoms in agitation/irritability/anger, self-harm urges, and thoughts/risk of suicide.??] Client Response/Progress/Benefit: [Patient was engaged and open to the discussion. Patients mood was ?mellow?. Patient describes her stressor being that she has not been sleeping very well. This has been going on the past few days and she believes it has something to do with her new medication and thinking about returning to work. Patients first win is that although she did not sleep well, she made it to her 7am appointment with her doctor and was able to drink her coffee and eat breakfast. The patients second ] Narrative Note: []
--- NOTE | 2023-01-25 10:10 | BH.SGPN.GN ---
Behaviors/Verbalizations/Mental Status: [] Eye contact is good. Motor activity is appropriate. Appearance is casual. Speech is Appropriate. Mood is depressed. Affect is congruent. Thoughts are linear and logical. No evidence of psychosis. Client Response/Progress/Benefit: [] Pt was an active participant during group discussions and group activities. Attentive during psychoeducation. Engaged during activity in which they identified which type of foods (i.e. carbs, sugar, salt, fast food, caffeine, etc) they seek out when sad, tired, angry, rushed, anxious, etc. Pt was able to identify the impact that certain foods have on their mental health through group example which was beneficial. Increased awareness of the connection between nutrition and mental health. Will continue in IOP to prevent decompensation, increase healthy coping, and to improve functioning to return to work. Narrative Note: []
--- NOTE | 2023-01-25 11:10 | BH.SGPN.GN ---
Behaviors/Verbalizations/Mental Status: []Pt alert and oriented, neatly dressed and groomed. Eye contact good. Motor activity appropriate. Speech within normal limits. Affect congruent, mood euthymic. Thoughts linear, logical, no signs of hallucinations or delusions. Client Response/Progress/Benefit: []Pt was an active participant throughout AEB contributing to group discussion and taking notes. Pt provided input during small group discussion on strategies to combat each factor maintaining adverse nutritional cycles. Worked with group to identify ways to foster more mindful nutritional choices. Each group participant identified one small step they could take today to begin establishing mental wellness promoting nutritional choices. Pt shared plans to?meal prep on Sundays which will help pt make healthier choices during the week. Appeared to benefit from gaining insight into mental wellness centered nutrition and identifying personal steps Pt can take to support own nutritional psychology. Recommended continued IOP tx to further increase healthy coping repertoire, promote mood stability, and improve overall functioning.? Narrative Note: []
--- NOTE | 2023-01-27 09:00 | BH.SGPN.GN ---
Behaviors/Verbalizations/Mental Status: [Patient was alert and oriented, appropriately dressed and groomed. Eye contact was good, motor activity normal, speech within normal limits. Affect congruent, mood tired. Thoughts linear, logical, no signs of hallucinations or delusions. Reviewed Patients symptom tracker and the patient reports moderate in anxiety/panic attacks, low to moderate in depressed mood, and reported no symptoms in agitation/irritability/anger, self-harm urges, and thoughts/risk of suicide. ] Client Response/Progress/Benefit: [ Patient was engaged and open to the discussion. Patient reported her mood to be ?restless?. Patient stated her stressor has to do with her finances. She has been out of work for the past couple of weeks and has run out of her personal and vacation time and is no longer getting paid. The patients first win is that the patient felt like isolating yesterday but instead she went to the movies with her cousin. The second win was that she cleaned almost the right of her house. Patient was interactive and respectful with other group members about their mental wins and stressors. Patient benefited from the discussion by listening to feedback and giving input on her peer?s stressors and mental health wins. Patient will continue with IOP treatment to help develop healthy skills, promote mood stability, and improve distress tolerance. ] Narrative Note: []
--- NOTE | 2023-01-27 10:20 | BH.SGPN.GN ---
Behaviors/Verbalizations/Mental Status: [] Eye contact is fair. Motor activity is appropriate. Appearance is casual. Speech is Appropriate. Mood is depressed. Affect is congruent. Thoughts are linear and logical. No evidence of psychosis. Client Response/Progress/Benefit: [] Pt was an active participant in group discussions AEB listening attentively to others and providing feedback at times. Participated in and was engaged during experiential activity. Able to relate activity to group topic of FOF. Engaged during interactive discussion on what failure means to the group in which peers identified and defined failure. Group was able to identify impact of fear of failure on mental health. Attentive during interactive discussion on the role that FOF plays in mental wellness, depression, anxiety, and growth. Benefited from increased awareness of how the role that FOF plays in mental health and decision-making. Will continue in IOP to increase healthy coping,prevent decompensation, and improve functioning to return to work. Narrative Note: [
--- NOTE | 2023-01-27 11:15 | BH.SGPN.GN ---
Behaviors/Verbalizations/Mental Status: []Pt alert and oriented, casually dressed and groomed. Eye contact good. Motor activity appropriate. Speech within normal limits. Affect congruent, mood euthymic and anxious. Thoughts linear, logical, no signs of hallucinations or delusions. Client Response/Progress/Benefit: [] Pt responded well to session, engaged in the experiential activity and attentive throughout group processing. Pt reported fear of failure has kept Pt from trying new things and meeting new people in the past. Pt completed fear of failure worksheet and was able to identify thoughts and behaviors that reinforce personal fear of failure including: negative thinking, avoidance, and past experiences. Pt participated in group discussion regarding strategies to overcome fear of failure. Identified wanting to work on starting to improve ability to identify and challenge distortions. Appeared to benefit from increased knowledge of strategies to combat fear of failure and gaining self-awareness. Pt will continue IOP tx to promote mood stability, continue to encourage self-compassion, and prevent decompensation. Narrative Note: []
--- NOTE | 2023-01-30 09:00 | BH.SGPN.GN ---
Behaviors/Verbalizations/Mental Status: [Patient was alert and oriented, appropriately dressed and groomed. Eye contact was good, motor activity normal, speech within normal limits. Affect congruent, mood content. Thoughts linear, logical, no signs of hallucinations or delusions. Reviewed Patients symptom tracker and the patient reports depressed mood, anxiety/panic attacks, agitation/irritability/anger, self-harm urges, and thoughts/risk of suicide within normal limits.] Client Response/Progress/Benefit: [ Patient was engaged and open to the discussion. Patient reported her mood to be ?optimistic?. Patient stated her first win was that she got a lot of things done in her house on Monday that was additional to the list she had already made. Patient also gave herself time to rest on Monday and feels accomplished. Her second win was that she is currently reading a book called ?Atomic Hab[employer]? that one of the therapists suggested to her. She stated she is enjoying the book a lot and is taking notes. The patient?s stressor was she has one more week until she goes back to work. She opened her email over the weekend but shut it off quickly because the emails ?just kept loading? and the count was in the hundreds. Patient was interactive and respectful with other group members about their mental wins and stressors. Patient benefited from the discussion by listening to feedback and giving input on her peer?s stressors and mental health wins. Patient will continue with IOP treatment to help develop healthy skills, promote mood stability, and improve distress tolerance. ] Narrative Note: []
--- NOTE | 2023-01-30 10:18 | BH.SGPN.GN ---
Behaviors/Verbalizations/Mental Status: []Pt alert and oriented, casually dressed and groomed. Eye contact good. Motor activity appropriate. Speech within normal limits. Affect congruent, mood euthymic and anxious. Thoughts linear, logical, no signs of hallucinations or delusions. Client Response/Progress/Benefit: [] Pt was an active participant in group discussions. Attentive during psychoeducation on 4 types of conflict styles (Competing, Collaborating, Avoiding, and Accommodating). Worked with group to define conflict and identify how conflict can be beneficial. With peers, pt identified barriers to addressing or managing conflict which included: not wanting to hurt others, unmanaged emotions, assumptions, and cognitive distortions. Pt believes they use the accommodating and avoiding styles the most with family and collaborative in the workplace. Pt shared she is slowly improving upon her ability to use competing approaches when she feels she really needs to get her point across. Benefited from group due to increase insight and awareness of benefits to conflict, conflict styles, and obstacles to managing conflict. Will continue in IOP to reduce distorted thinking patterns which reinforce anxiety, continue to promote self-care skills, and promote ongoing mood stability. Narrative Note: []
--- NOTE | 2023-01-30 11:18 | BH.SGPN.GN ---
Behaviors/Verbalizations/Mental Status: []Pt alert and oriented, casually dressed and groomed. Eye contact good. Motor activity appropriate. Speech within normal limits. Affect congruent, mood euthymic. Thoughts linear, logical, no signs of hallucinations or delusions. Client Response/Progress/Benefit: [] Pt was an active participant in group discussions and activity. Attentive during psychoeducation. Along with peers was able to reflect on what conflict resolution skills can be useful outside of IOP. Pt chose to continue to work on the conflict resolution skills of being more assertive and practicing displaying confidence in communicating. Benefited from practicing and learning conflict resolution skills. Will continue in IOP to promote gains, continue to promote mood stability, and prevent decompensation. Narrative Note: []
--- NOTE | 2023-02-01 09:51 | BH.MDN ---
Multi-Disciplinary Note Note 30-min Individual: Time Started:: 09:15 Date: 02/01/23 Purpose of session/treatment goals addressed:: To review progress, discuss aftercare, and process any current stressors. Eye Contact:: Good Motor Activity:: Appropriate Appearance:: Neat Speech:: Appropriate Mood:: Euthymic Affect:: Full Thoughts:: Linear, Logical and No evidence of hallucinations/delusions noted Staff Interventions:: CBT techniques, discharge planning, strengths perspective and reviewed DSM-5 Client Response:: Pt responded well to session, open to meeting with therapist. Pt reports she is anxious, but also feels ready to return to work full-time next week. Pt has been working on improving her daily routine to help pt feel more confident and less stressed during the work week. Some of these changes include meal prepping on the weekend, waking up earlier to make coffee, and spending time tidying up each day. Pt feels that she has made a lot of positive changes from being in IOP including cutting out alcohol, reducing isolation, and practicing self-care consistently. Pt also reports feeling like she has accomplished her goals of increasing self-awareness of her triggers and negative thought patterns. Pt wants to keep working on self-compassion and being more understanding with herself. Pt shared she is preparing for work by taking care of emails this week and pt plans to give work a try before deciding if she wants to pursue something different. Pt responded well to therapist praising pt's efforts and hard-work in pt's treatment. Pt feels comfortable to discharge from IOP this Monday. Risks/Concerns:: No report of thoughts of . Progress Toward Goals/Plan:: Pt will discharge from IOP tx this Monday as pt has accomplished her tx goals AEB her 66% symptom reduction and self-report of overall improvement in functioning. Pt has called [facility] and is waiting to hear back to schedule her outpatient therapy. Pt sees Dr. Armas for medication management and last saw him on 01/25/23. Pt wants to continue working on improving self-compassion, maintaining self-care, and promoting a work-life balance. Pt can benefit from one more IOP session to promote mood stability and reinforce healthy coping skills. Time Stopped:: 09:35
--- NOTE | 2023-02-01 10:20 | BH.SGPN.GN ---
Behaviors/Verbalizations/Mental Status: []Pt alert and oriented, neatly dressed and groomed. Eye contact good. Motor activity appropriate. Speech within normal limits. Affect congruent, mood euthymic. Thoughts linear, logical, no signs of hallucinations or delusions. Client Response/Progress/Benefit: [] Pt responded well to session AEB contributing to discussion, taking notes, and listening attentively to others. Group discussed the benefits of managed anger and anger as a secondary emotion. Pt shared perspective on personal benefits of anger as motivated for change and communication. Pt completed worksheet on anger triggers and personal warning signs of anger. Pt shared she connected a lot with the anger iceberg, sharing that emotions such as fear and anxiety trigger anger responses. Pt also reports that she says things she does not mean when she is angry. Appeared to benefit from increased knowledge of the anger cycle as well as personal triggers. Will continue IOP tx to reinforce healthy coping skills and establish aftercare. Narrative Note: []
--- NOTE | 2023-02-01 11:15 | BH.SGPN.GN ---
Behaviors/Verbalizations/Mental Status: []Client alert and oriented, casually dressed and groomed. Eye contact good. Motor activity appropriate. Speech within normal limits. Affect congruent, mood euthymic. Thoughts linear, logical, no signs of hallucinations or delusions. Client Response/Progress/Benefit: []Pt was attentive throughout AEB contributing at times to small group discussion and self-reflection. Group finished processing cues to anger worksheet. Pt completed personal anger cycle. Identified triggering event, negative thoughts, emotional response, physical symptoms, and behavioral response. Pt attentive as group brainstormed healthy coping skills for better managing anger which included: problem solving, walking/exercise, taking a break, grounding tools, reflection, and journaling. Pt worked in small groups to identify healthy coping skills/strategies to manage anger. Pt identified connected with challenging expectations. Pt appeared to benefit from identifying different techniques to manage anger as well as gaining awareness of potential consequences of unmanaged anger. Will continue IOP tx to continue use of healthy coping skills, challenge perspective, and prevent decompensation.
--- NOTE | 2023-02-01 11:57 | PCM.BH.PN ---
Progress Note Progress Note: And history of Present Illness/Interim History: The patient is a 27-year-old single female with a history of anxiety and depression who is seen in follow-up at the [facility]. I last saw the patient 3 weeks ago and no medication changes were made at that time. The patient states that she saw her outpatient psychiatrist 1 week ago and no new medication changes were made. The patient feels that she is improving and her mood is better and she is much more motivated and able to function better at home and in the IOP. She feels she is learning in the IOP program. Her mood is much less depressed than it was before and her anxiety is improved. She has not had any panic attacks in the last few weeks. She states that she wakes up sometimes during the night but is still getting 6 hours of sleep at night which is the same amount she was when she started the program. She does feel that the Wellbutrin has made her sleep less restful though. She used to want to sleep all the time and now she no longer feels that way since starting the Wellbutrin. She is not using any energy drinks and does not use any caffeine after 12 noon daily. She denies passive thoughts of , suicidal ideation, plan for suicide, homicidal ideation, hallucinations or delusions. Current Psychiatric Medications: [] Wellbutrin XL 150 mg p.o. every morning (x5 weeks); Cymbalta 60 mg p.o. daily (increased 2-1/2 months ago); hydroxyzine 50 mg nightly and 25 mg as needed for panic attack; BuSpar 10 mg p.o. twice daily; vitamin D daily Mental Status Examination: [] The patient is a 27-year-old overweight female who appears normal for stated age and is casually dressed and groomed with good hygiene. She has no psychomotor agitation or retardation and is ambulatory with a normal gait. Mood is mildly depressed. Affect is full and normal. Eye contact is good and speech is normal rate and rhythm and fluent with no pressure. Thought process is goal-directed and organized. Thought content: There is no evidence of passive thoughts of , suicidal ideation, homicidal ideation, harm hallucinations or delusions. Reality testing is intact. Intelligence is average. Judgment is intact. Insight is fair. Impulsivity is low to moderate. Diagnoses: [] 1. Generalized anxiety disorder 2. Major depressive disorder, recurrent, severe without psychosis (improving) 3. Work issues Plan: [] The patient will continue the IOP at [facility] as the structure, support, education and group therapy will hopefully prevent worsening of the patient's symptoms. She felt safe during the interview and if it anytime she does not feel safe she will let us know or go to the emergency room. Patient will continue to remain sober from alcohol use and limit caffeine intake. She agrees to try trazodone 50 mg p.o. nightly to help with sleep when needed. She will continue to follow-up with her outpatient providers and I will see the patient in follow-up while she is in the IOP program.
--- NOTE | 2023-02-03 09:00 | BH.SGPN.GN ---
Behaviors/Verbalizations/Mental Status: [ Patient was alert and oriented, appropriately dressed and groomed. Eye contact was good, motor activity normal, speech within normal limits. Affect congruent, mood content. Thoughts linear, logical, no signs of hallucinations or delusions. Reviewed Patients symptom tracker and the patient reports low/moderate in depressed mood and anxiety/panic attacks. Patient does not report any symptoms in agitation/irritability/anger, self-harm urges, or thoughts/risk of suicide.] Client Response/Progress/Benefit: [Patient was engaged and open to the discussion. Patient reported her mood to be ?tired and engaged?. Patients first win was that she cooked dinner for her family last night and it turned out really good. She stated it was a little overwhelming at first, but she used behavior activation to ?just start? and it was fine. ?Patients second win was that she has started a new sleeping medicine which has been helping her go to bed early and woke up before her alarm this week. She stated this has been making her feel more alert and enjoys that. Patient?s stressor is that she is going to the [employer] this weekend to celebrate her grandpas birthday. She said there will be people there that have untreated mental health disorders and substance abuse issues. Patient reported that she has a plan to cope or plan to leave already set in place. Patient was interactive and respectful with other group members about their mental wins and stressors. Patient benefited from the discussion by listening to feedback and giving input on her peer?s stressors and mental health wins. Patient will continue with IOP treatment to help develop healthy skills, promote mood stability, and improve distress tolerance. ] Narrative Note: []
--- NOTE | 2023-02-03 09:28 | BH.IGGP_ITS ---
Aftercare Plan Demographics Treatment End Date:: 02/03/23 Psychiatrist:: Elizabeth Alanis Psychiatrist Office #:: [phone] [facility] Therapist:: Tyra Swanson Therapist Phone #:: [phone] Medications Home Medications bupropion HCl 150 mg 24 hr tablet, extended release (Wellbutrin XL) 150 mg PO DAILY 30 days #30 tabs 01/25/23 buspirone 10 mg tablet 10 mg PO BID #60 tabs 01/25/23 duloxetine 60 mg capsule,delayed release 60 mg PO DAILY #30 caps 01/25/23 hydroxyzine HCl 25 mg tablet 25 mg PO TID PRN anxiety #90 tabs 01/25/23 trazodone 50 mg tablet 50 mg PO QHS 30 days #30 tabs 02/01/23 Plan Details Progress/Aftercare Plan Details:: Juana has made significant strides since starting IOP as shown by her reduced symptoms, ability to challenge distortions, and overall increased ability to manage emotions and stressors. When Juana started IOP, she was severely depressed. Juana was isolating, struggling with self-care, and was not able to function like she wanted to. Now, Juana is actively using healthy coping skills, practicing self-care, challenging negative thoughts, and using the awareness she has gained to manage her emotions. Juana contributed to group discussions, offered emotional support to peers, and consistently followed through with her goals. In individual sessions, Juana was receptive to feedback, consistent with homework, and willing to push herself. Juana?s DSM-5 scores for depression decreased by 71%, anger decreased by 50%, anxiety decreased by 50%, and her overall scores decreased by 66%. Juana will follow up with Dr. Armas for medication management and [facility] for individual counseling. Strategies for Success:: 1. Opposite action! continue using this skill when you want to isolate, avoid, or shy away. 2. Self-care. Engage in hobbies, be vulnerable, continue to set boundaries, and SPEAK KINDLY TO YOURSELF. 3. Challenge distortions. Remember that thoughts are thoughts not facts. Challenge yourself to give yourself credit rather than minimizing. 4. Communicate with supports even though it is hard. 5. Continue to stay social, it has helped so much. 6. Self-compassion. You are just as worthy as anyone else of compassion, understanding, and eloy. Never forget that. 7. Remember setbacks happen, but that does not mean progress is erased. 8. Keep reading and using your creative brain. 9. Keep up with therapy and review your binder. 10. Keep working on small steps! You got this! Appointments Appointments/Referrals to Other Services:: 1. Dr. Armas for medication management last appointment was 01/25/23. 2. [facility] for counseling
--- NOTE | 2023-02-03 10:10 | BH.SGPN.GN ---
Behaviors/Verbalizations/Mental Status: [] Client alert and oriented, casually dressed and groomed. Eye contact good. Motor activity appropriate. Speech within normal limits. Affect congruent, mood euthymic. Thoughts linear, logical, no signs of hallucinations or delusions. Client Response/Progress/Benefit: [] Client was an active participant, AEB taking notes and providing input in group discussions and activities. Attentive during psychoeducation. Client engaged during interactive discussion in which the group defined self-care and discussed its benefits. Group discussed barriers to engaging in self-care. Client identified personal barrier of not feeling like she is worth the effort it takes which keeps client from practicing self-care. Client participated in small groups where they worked to identify common self-care ?myths?. Benefited from increased awareness of self-care, its benefits, and the consequences of not utilizing self-care strategies. Client is expected to discharge from program today with satisfactory progress. Narrative Note: []
--- NOTE | 2023-02-03 10:32 | BH.DS ---
Discharge Summary Demographics Date of Admission:: 12/26/22 Discharge Date: 02/03/23 Presenting Problems at Admission:: Pt is a 27-year-old female with a history of MDD and [place]WICK. Pt was referred to [facility] tx by Dr. Armas due to worsening depression and anxiety resulting in pt taking FMLA from work. Pt reports her job is a big trigger for her worsening symptoms. Pt currently endorses a depressed mood, crying spells, hopelessness, worthlessness, feeling like a burden, insomnia, isolation, lack of energy, and lack of concentration. Pt also reports having anxiety that has been a problem forever but pt has been having weekly panic attacks. Pt also reports feelings of dread and avoidance because of anxiety. Pt's symptoms are impacting her personal hygiene, work functioning, and social functioning. Discharge Diagnoses:: Generalized Anxiety Disorder F41.1; Major Depressive Disorder, recurrent, severe, without psychosis F 33.2. Reason for Discharge:: Pt has accomplished her tx goals AEB her reduction of DSM-5 symptoms, self-report of improved mood, and self-report of improve functioning. Pt no longer meets criteria for IOP level of care and will continue with outpatient therapy and psychiatry to maintain gains. Treatment Progress During Treatment & Response: Pt has made significant strides since starting IOP as shown by her reduced symptoms, ability to challenge distortions, and overall increased ability to manage emotions and stressors. When Pt started IOP, she was severely depressed. Pt was isolating, struggling with self-care, and was not able to function like she wanted to. Now, Pt is actively using healthy coping skills, practicing self-care, challenging negative thoughts, and using the awareness she has gained to manage her emotions. Pt contributed to group discussions, offered emotional support to peers, and consistently followed through with her goals. In individual sessions, Pt was receptive to feedback, consistent with homework, and willing to push herself. Pt?s DSM-5 scores for depression decreased by 71%, anger decreased by 50%, anxiety decreased by 50%, and her overall scores decreased by 66%. Pt will follow up with Dr. Armas for medication management and [facility] for individual counseling. Issues Still to be Addressed:: Building healthier core beliefs, self-care, boundary setting, assertive communication skills, and maintenance of healthy coping skills. Pt has mentioned potentially exploring a new job in the future and could benefit from evaluating how her return to work impacts her mental health. Discharge Recommendations/Instructions:: Pt will continue seeing Dr. Armas for medication management. Pt's last appointment was on 01/25/23. Pt is planning to work with Liz Fajardo at [facility], but pt does not have an appointment yet. Pt has new client paperwork completed and is waiting for a return call. Pt is unable to do IOP aftercare group at [facility] due to work schedule conflict. Discharge Handout
--- NOTE | 2023-02-03 11:10 | BH.SGPN.GN ---
Behaviors/Verbalizations/Mental Status: [] Client alert and oriented, neatly dressed and groomed. Eye contact good. Motor activity appropriate. Speech within normal limits. Affect congruent, mood euthymic. Thoughts linear, logical, no signs of hallucinations or delusions. Client Response/Progress/Benefit: [] Client engaged participant AEB completing self-assessment worksheet and providing input throughout discussion. Client completed worksheet identifying current self-care practices and what self-care activities client wants to start using. Client selected professional self-care to begin practicing more consistently. Client plans to do this by practicing time management and work life balance. Appeared to benefit from completing the self-care evaluation and gaining insights into current self-care practices, as well as identifying areas in which Client would like to improve upon. Client is expected to discharge today from [facility] with satisfactory progress. Narrative Note: []
== END 2023-02-06 07:24 | disposition home or self-care (01) ==
LOC: BHIOP 09:17
PROVIDERS: PCP Family Medicine; Referring Provider Psychiatry & Neurology Psychiatry; Visit Provider Psychiatry & Neurology Psychiatry
DX: F33.2 Major depressive disorder, recurrent severe without psychotic features (principal); F41.1 Generalized anxiety disorder
CPT/HCPCS: S9480; 90832; 90834; 90853